=== PATIENT | female | born 1965 | race Caucasian/White ===

== ENCOUNTER → 2018-01-10 07:04 | Outpatient (CLI) | payer MEDICAID, SELFPAY ==
--- NOTE | 2018-01-10 07:04 | DT_ITS ---
This patient was seen during an EMR downtime January 07, 2018 - January 14, 2018. This patient may have a combination of paper and electronic documentation or all paper documentation. All documentation is viewable within the e-chart portion of [employer] for each patient visit.
--- NOTE | 2018-01-10 07:50 | MRI_ITS ---
STUDY: MRI BRAIN WITHOUT CONTRAST REASON FOR EXAM: Female, 52 years old. SEIZURE. TECHNIQUE: Standardized multiplanar fat and water weighted pulse sequences were obtained. COMPARISON: None. FINDINGS: The ventricles are dilated and parallel in configuration, consistent with colpocephaly. There is absence of the corpus callosum with absence of the cingulate gyrus with radial configuration, consistent with dysgenesis of the corpus callosum. There are a limited number of small white matter hyperintensities, distributed throughout the deep white matter tracts of the cerebral hemispheres. Normal bilateral basal ganglia. Normal thalami. There is no extra-axial fluid accumulation. Normal flow voids within the major intracranial circulation suggesting patency by spin echo criteria. Normal sella turcica, pituitary gland, infundibular stalk, optic chiasm and hypothalamus. Normal tectal plate and pineal gland. Normal midbrain, gladis and medulla. Normal cerebellum. Normal basal cisterns. Normal bilateral temporal bones. Normal bilateral internal auditory canals. No demonstrated orbital abnormality, within the constraints of a routine brain study. Normal visualized paranasal sinuses. Normal calvarium and skull base. Normal visualized soft tissue structures. Normal visualized upper cervical spine. MRI/Brain without Contrast IMPRESSION: Dysgenesis of the corpus callosum. Electronically Signed: June Swain MD at 9:35 EDT Tel , Service support ,
== END ==
PROVIDERS: Visit Provider Psychiatry & Neurology Neurology
DX: R56.9 Unspecified convulsions (principal)
CPT/HCPCS: 70551

== ENCOUNTER 2018-04-16 19:44 | Emergency (ER) | payer MEDICAID, SELFPAY ==
[2018-04-16 19:44] VITALS: BP 98/76; PULSE 87; RESP 14; TEMP 36.4; O2SAT 99; BMI 19.8
--- NOTE | 2018-04-16 21:11 | ED.VISSUMM ---
- ER Visit Summary Date of Service: 04/16/18 Chief Complaint: Left leg redness History of Present Illness: The patient is a 52 F who has redness in the left popliteal area. She has a history of eczema and in the same area. Now it is red. She states that seeping some fluid. She had some low-grade temperature elevations over the weekend but nothing today or yesterday. She has been using Tylenol for the pain. Physical Examination: Vital signs reviewed. Left leg reveals some erythema behind the left popliteal area. There is no abscess. No drainage at this time. No lymphangitic streaking. Not specifically tender to palpation Test Results: None performed Emergency Department Course and Treatment: Patient has cellulitis of this area. It is local without streaking. She will be treated with Bactrim and will follow up with her PCP Treatment Plan: [] Disposition: Discharge Impression: Left leg cellulitis This note was generated with [employer] dictation software. It may contain incorrect words, spelling, and punctuation that were not noted in review of the chart prior to signing ED Disposition - Plan for ED Patient: Disposition: Home or Assisted Living Chief Complaint: Cellulitis Instructions: Discharge Instructions for Cellulitis Prescriptions: Smz/Tmp Ds [Bactrim Ds] 1 tab PO BID #20 tab Referrals: Care Physician,No Primary [Primary Care Provider] -
[2018-04-16 21:16] VITALS: PULSE 78; RESP 16; O2SAT 98
[2018-04-16] MEDS: Smz/Tmp Ds Tablet 1 TABLET PO (21:18)
== END 2018-04-16 21:20 | disposition home or self-care (01) ==
LOC: ED 21:15
PROVIDERS: Emergency Provider Emergency Medicine
DX: L03.116 Cellulitis of left lower limb (principal); R56.9 Unspecified convulsions; Z72.0 Tobacco use; Z90.5 Acquired absence of kidney
CPT/HCPCS: 99283

== ENCOUNTER → 2018-12-24 11:21 | Outpatient (CLI) | payer MEDICAID, SELFPAY ==
[2018-12-24 11:59] LABS: Absolute Lymphocyte Count 1.59 X10^3/ul (0.83-4.51); Absolute Neutrophil Count 3.1 X10^3/uL (2.0-7.7); Basophil# 0.02 X10^3/uL; Basophil% 0.4 % (0-1); Eosinophil# 0.08 X10^3/uL; Eosinophils% 1.5 % (0-5); Hematocrit 40.9 % (37-47); Hemoglobin 13.8 g/dl (12.0-15.0); Lymphocyte # 1.59 X10^3/ul (4.0); Lymphocyte % 29.3 % (19-41); Mean Corp Hgb Conc 33.7 g/gl (32-36); Mean Corpuscular Hgb 32.9 pg (27.0-32.0); Mean Corpuscular Volume 97.4 fL (81-99); Mean Platelet Vol. 9.3 fl (6.2-12.0); Monocyte# 0.67 X10^3/uL; Monocyte% 12.3 % (0-10); Neutrophil # 3.06 X10^3/uL (2.7-7.7); Neutrophil % 56.3 % (47-70); POSITIVE COUNT NO; POSITIVE DIFFERENTIAL NO; POSITIVE MORPHOLOGY NO; Platelet Count 309 K/mm3 (150-450); RBC Distribution Width CV 13.2 % (11.6-14.6); RBC Distribution Width SD 46.1 fl (35.1-43.9); White Blood Count 5.4 K/mm3 (4.4-11.0)
[2018-12-24 13:18] LABS: ALB/GLOB Ratio 0.9 RATIO (0.9-2.4); AST(SGOT) 15 U/L (15-37); Alanine Aminotransfer ALT/SGPT 27 U/L (13-56); Albumin, Serum 3.5 g/dL (3.2-5.0); Alkaline Phosphatase 152 U/L (45-117); Anion Gap 6 (5-15); BUN 13 mg/dL (7-18); BUN/Creat Ratio 15.2 RATIO (10-20); Calcium,Total 8.7 mg/dL (8.5-10.1); Chloride 105 mmol/L (98-107); Creatinine, Serum 0.86 mg/dL (0.55-1.02); EST Glomerular Filtration Rate 73 mL/min (>60); Est Glom Filt Rate - Afr Amer 89 mL/min (>60); Globulin 3.8 g/dL (2.2-4.2); Glucose 79 mg/dL (74-106); Potassium 4.1 mmol/L (3.5-5.1); Protein, Total 7.3 g/dL (6.4-8.2); Sodium Level 138 mmol/L (136-145)
== END ==
PROVIDERS: Referring Provider Psychiatry & Neurology Neurology; Visit Provider Psychiatry & Neurology Neurology
DX: T14.8XXA Other injury of unspecified body region, initial encounter (principal); X58.XXXA Exposure to other specified factors, initial encounter; Y93.9 Activity, unspecified; Y92.9 Unspecified place or not applicable; Y99.9 Unspecified external cause status
CPT/HCPCS: 36415; 80053; 85025

== ENCOUNTER → 2020-07-13 06:23 | Outpatient (CLI) | payer MEDICAID, SELFPAY ==
[2020-02-12 09:08] VITALS: BMI 18.3
--- NOTE | 2020-07-13 11:49 | TELEMED_ITS ---
[facility] has confirmed receipt of a request for visit. This document confirms receipt of the order initiating the consult. To find the results of the consultation, please view the patient's reports for the scanned Telemed Consult.
== END ==
PROVIDERS: Referring Provider Psychiatry & Neurology Neurology; Visit Provider Psychiatry & Neurology Neurology
DX: G40.909 Epilepsy, unspecified, not intractable, without status epilepticus (principal)
CPT/HCPCS: 95819

== ENCOUNTER 2021-01-15 06:12 | Inpatient (IN) | payer MEDICAID, SELFPAY ==
[2021-01-15] VITALS (13 sets, daily range): BP systolic 88–112; BP diastolic 52–70; PULSE 74–96; RESP 12–19; TEMP 36.1–36.7; O2SAT 94–100; BMI 20.3
--- NOTE | 2021-01-15 06:18 | EKG12_ITS ---
Test Reason : PALPITATIONS Blood Pressure : / mmHG Vent. Rate : 094 BPM Atrial Rate : 094 BPM P-R Int : 170 ms QRS Dur : 080 ms QT Int : 352 ms P-R-T Axes : 075 065 061 degrees QTc Int : 440 ms Normal sinus rhythm Normal ECG Confirmed by MART GOMEZ, CLARK ([id number]), development editor SHAAN GARCIA ([id number]) on 01/20/2021 9:20:58 AM Referred By: BB Confirmed By:CLARK CEVALLOS MD
--- NOTE | 2021-01-15 06:19 | EDS_ITS ---
HPI History of Present Illness Chief Complaint: Palpitations Informant: patient Onset/Context/Timing Onset: Hours (1-2) Activity at onset: sudden and sleep Timing: Continuous and Lasts (1-2 hrs) Quality: Positive for Sharp Location: Substernal Current Severity: Mild Maximum Severity: Moderate Worsened By: Nothing Relieved By: - (spontanously, when tachydysrrhythmia converted per EMS) Associated Symptoms: Positive for Dyspnea and Palpitations; Negative for Nausea, Vomiting, Diaphoresis, Cough, Fever and Lightheadedness Narrative Narrative: Patient woke up feeling rapid racing heartbeat, nonpleuritic sharp chest discomfort, and dyspnea. Lasted for an hour or 2, called EMS, they put her on the monitor and they saw her in what appeared to be SVT at a rate of over 200, but she spontaneously converted just after that and they were unable to print it. They had an EKG performed just after that that was sent to us and jose c ears normal. The patient states that just after that point when she spontaneously converted, she felt much better and has been feeling better since, except she still has some mild chest discomfort. She has no history of coronary disease. She does have a history of SVT and states in the past she had the exact same symptoms. Prior Similar Symptoms: Yes and - (SVT) [facility] Medical History (Updated 01/15/21 @ 07:[address] Mariano Fernandez MD) Anxiety Blindness of left eye COPD (chronic obstructive pulmonary disease) Depression Epilepsy History of right foot surgery History of uterine cancer Panic attacks Home Medications albuterol sulfate 90 mcg/actuation aerosol inhaler 2 puff INHALATION Q6H PRN 01/27/20 [History Last Taken Unknown] ascorbate calcium (vitamin C) 500 mg tablet 500 mg PO DAILY 01/27/20 [History Last Taken Unknown] aspirin 81 mg tablet,delayed release 81 mg PO DAILY 01/27/20 [History Last Taken Unknown] calcium carbonate 500 mg (1,250 mg)-vitamin D3 200 unit tablet 1 tab PO DAILY 01/27/20 [History Last Taken Unknown] mecobalamin (vitamin B12) 1,000 mcg chewable tablet 500 mcg PO DAILY tab 02/12/20 [History Last Taken Unknown] phenytoin sodium extended 100 mg capsule 100 mg PO .COMPLEX #150 cap 12/22/20 [Rx Last Taken Unknown] Allergy/AdvReac Type Severity Reaction Status Date / Time codeine Allergy Hives Verified 01/15/21 06:19 tramadol Allergy Hives Verified 01/15/21 06:19 Family History Aunt Epilepsy Uncle Epilepsy Other Anxiety Asthma Depression Kidney disease Surgical History History of cholecystectomy History of eye surgery History of hysterectomy History of kidney removal Social History Smoking Status: Current every day smoker tobacco type: cigarettes Tobacco: How many years used: 40 Electronic Cigarette Use: with nicotine second hand exposure: No quit status: considering quitting alcohol intake: current alcohol intake frequency: holidays/special occasions only Alcohol type: wine substance use type: former substance user and marijuana ROS ROS ED Constitutional Constitutional ED: Denies chills or fever(s) Eyes Eyes: Denies change in vision or diplopia ENT ENT ED: Denies rhinorrhea or sore throat Cardiovascular Cardiovascular: Reports as per HPI, chest pain, dyspnea, pounding heartbeat and racing heartbeat; Denies radiating jaw, neck or arm pain, syncope or vomiting Respiratory/Chest Respiratory/Chest: Reports as per HPI and dyspnea; Denies cough Gastrointestinal Gastrointestinal: Denies abdominal pain, diarrhea, nausea or vomiting Genitourinary Genitourinary ED: Denies dysuria or hematuria Musculoskeletal Musculoskeletal: Denies back pain or neck pain Integumentary Denies abscess or rash Neurologic Neurologic: Denies headache(s), paresthesias or weakness Psychiatric Psychiatric: Denies anxiety or suicidal thoughts EXAM Physical Exam Const Vital Signs: 01/15/21 06:13 01/15/21 06:19 01/15/21 06:24 Temperature 97 F L Temperature Source Temporal Pulse Rate 96 95 Respiratory Rate 16 12 Blood Pressure 89/54 L Blood Pressure Mean 65 Pulse Ox 96 97 Oxygen Delivery Method Nasal Cannula Oxygen Flow Rate (L/min) 2 01/15/21 07:00 Temperature Temperature Source Pulse Rate 91 Respiratory Rate 19 H Blood Pressure 97/70 Blood Pressure Mean 79 Pulse Ox 99 Oxygen Delivery Method Room Air Oxygen Flow Rate (L/min) Positive well nourished and well developed General Appearance ED: well developed and NAD HEENT Reports moist mucous membranes normocephalic and atraumatic Eyes PERRL and EOMs intact bilaterally Neck full ROM and supple Resp normal respiratory effort, no retractions, no use of accessory muscles and clear to auscultation bilaterally Effort and Inspection: able to speak in complete sentences; Negative for respiratory distress Auscultation: diminished lung sounds diffuse; Negative for crackles, rales, rhonchi or wheezes Cardio regular rate, regular rhythm and no murmurs Rate: Negative for tachycardic GI non-tender and non-distended Auscultation: normoactive bowel sounds Palpation: soft Back/Spine no CVA tenderness General Back: other FROM Extremity normal to inspection and no calf tenderness General Extremety ED: Negative for edema, pulses abnormal or tenderness General Extremity: Negative for edema or pulses abnormal Neuro oriented x3, CN's II-XII intact bilaterally and no sensory deficits noted Sensorium / Orientation: awake and alert Motor Exam: strength 5/5 throughout Skin no rashes or lesions noted and no wounds Heart Score History: Slightly/Non-Suspicious ECG: Normal Age: >45 - <65 years Risk Factors: 1 or 2 Risk Factors Troponin: </= Normal Limit Score: 2 MDM MDM MDM Narrative Medical decision making narrative: Patient's heart score is 2, and I do not suspect acute coronary syndrome here based on the history and her EKGs. She states she used to live down in [facility], she did see Dr. Reed for cardiology at [facility] in [place], but states she lives here now and is looking for something more local to follow-up with. At that time they just had her take baby aspirin which she has continued. She states she used to drink 12 pots of coffee in conjunction with her significant other, but she does not drink caffeine anymore, but she does smoke quite a bit. We discussed trying to quit, and because it could be helping to push her into tachydysrhythmias. She unders tands. At this time her chest x-ray looks good, her rhythm is normal, her symptoms continue to improve gradually, but she has mild ALONSO and her troponin returned abnormal at 0.2. Plan is for admission and further evaluation and serial troponins. She currently has very mild residual chest discomfort and declines anything for it. Lab Data Attestation: I reviewed the patient's lab results. Labs: Laboratory Results - last 24 hr 01/15/21 01/15/21 06:15 06:15 WBC 7.0 RBC 3.67 L Hgb 12.0 Hct 37.1 MCV 101.1 H MCH 32.7 H MCHC 32.3 RDW Std Deviation 46.9 H RDW Coeff of Eleazar 12.6 Plt Count 259 MPV 9.4 Immature Gran % (Auto) 0.400 Neut % (Auto) 68.3 Lymph % (Auto) 20.5 Bourbon % (Auto) 9.0 Eos % (Auto) 1.4 Baso % (Auto) 0.4 Absolute Neuts (auto) 4.8 Absolute Lymphs (auto) 1.44 Nucleated RBC % 0 Sodium 143 Potassium 3.6 Chloride 109 H Carbon Dioxide 29.0 Anion Gap 5 BUN 21 H Creatinine 1.23 H Estim Creat Clear Calc 41.58 Est GFR (MDRD) Af Amer 58 L Est GFR (MDRD) Non-Af 48 L BUN/Creatinine Ratio 17.1 Glucose 139 H Calcium 8.6 Troponin I 0.217 H Radiography Chest X-Ray - ED: 1 View, Read by ED Physician, No Acute Disease and Chronic Changes Diagnostic Testing: Radiology Impression Chest X-Ray 01/15/21 06:28 IMPRESSION: Mildly hyperinflated lungs. Lungs are clear. Electronically Signed: Hussain Borwn DO at 6:46 EDT Tel , Service support , EKG Initial EKG: Attestation: I personally reviewed and interpreted this EKG as follows: Interpretation: Sinus Rhythm and No Acute Injury Pattern Prior EKG tracings: available for review Prior: Unchanged Discharge Plan Dx/Rx/DC Orders Clinical Impression: Chest pain, unspecified, SVT (supraventricular tachycardia), Encounter for smoking cessation counseling, Elevated troponin Disposition Disposition: Acute Care Hospital [facility] [facility]
[2021-01-15 06:27] LABS: Absolute Lymphocyte Count 1.44 X10^3/uL (0.83-4.51); Absolute Neutrophil Count 4.8 X10^3/uL (2.0-7.7); Basophil# 0.03 X10^3/uL; Basophil% 0.4 % (0-1); Eosinophils% 1.4 % (0-5); Hematocrit 37.1 % (37-47); Lymphocyte # 1.44 X10^3/ul (0.83-4.51); Lymphocyte % 20.5 % (19-41); Mean Corp Hgb Conc 32.3 g/dL (32-36); Mean Corpuscular Hgb 32.7 pg (27.0-32.0); Mean Corpuscular Volume 101.1 fL (81-99); Mean Platelet Vol. 9.4 fl (6.2-12.0); Monocyte# 0.63 X10^3/uL; NRBC Flagged by Analyzer 0 % (0-5); Neutrophil # 4.78 X10^3/uL (2.7-7.7); Neutrophil % 68.3 % (47-70); Platelet Count 259 K/mm3 (150-450); RBC Distribution Width CV 12.6 % (11.6-14.6); RBC Distribution Width SD 46.9 fl (35.1-43.9); Red Blood Count 3.67 M/mm3 (4.2-5.4)
--- NOTE | 2021-01-15 06:28 | RAD_ITS ---
STUDY: X-RAY CHEST REASON FOR EXAM: Female, 55 years old. chest pain TECHNIQUE: Single AP portable view of the chest. COMPARISON: None. FINDINGS: The lungs are mildly hyperinflated. Lungs are clear. There is no demonstrated pleural abnormality. Normal size heart. Normal mediastinum and maddie. Normal visualized pulmonary arteries. Normal visualized aortic arch and descending thoracic aorta. Normal visualized thoracic spine. Normal visualized ribs, clavicles, and shoulders. There is no demonstrated abnormality of the visualized soft tissue structures of the upper abdomen. RAD/Chest 1 View (Portable) IMPRESSION: Mildly hyperinflated lungs. Lungs are clear. Electronically Signed: Hussain Brown DO at 6:46 EDT Tel , Service support ,
[2021-01-15 07:02] LABS: Anion Gap 5 (5-15); BUN 21 mg/dL (7-18); BUN/Creat Ratio 17.1 RATIO (10-20); Calcium,Total 8.6 mg/dL (8.5-10.1); Chloride 109 mmol/L (98-107); Creatinine, Serum 1.23 mg/dL (0.55-1.02); EST Glomerular Filtration Rate 48 mL/min (>60); Est Glom Filt Rate - Afr Amer 58 mL/min (>60); Estimated Creatinine Clearance 41.58 ml/min; Glucose 139 mg/dL (74-106); Potassium 3.6 mmol/L (3.5-5.1); Sodium Level 143 mmol/L (136-145)
[2021-01-15] MEDS: Aspirin 81 MG TAB.CHEW 162 MG PO (08:09)
--- NOTE | 2021-01-15 08:35 | ECHOD_ITS ---
Reason For Study: ARRHYTHMIA Procedure This was a 2D Doppler, Color Flow transthoracic echocardiogram. Exam performed portable in patient room. Left Ventricle Normal left ventricle. The estimated ejection fraction is EF 55-60% %. Right Ventricle Normal right ventricle. Normal systolic function. Atria Normal left atrium. Normal right atrium. Mitral Valve The mitral valve is structurally normal. No prolapse or stenosis seen. Trivial mitral valve insufficiency. Tricuspid Valve Normal tricuspid valve. Trivial tricuspid valve insufficiency. Aortic Valve Normal aortic valve. Pulmonic Valve Normal pulmonic valve. Great Vessels Normal aortic root. Pericardium/Pleural No pericardial effusion. MMode/2D Measurements & Calculations LVIDd: 4.2 cm IVSd: 0.77 cm Ao root diam: 2.8 cm LVIDs: 3.1 cm LVPWd: 0.78 cm RVDd: 2.2 cm FS: 24.4 % LAV(MOD-bp): 22.9 ml LVAd ap4: 19.7 cm2 LVAd ap2: 24.3 cm2 LAV(MOD-bp) Indexed: 15.3 ml/m2 LVLd ap4: 7.0 cm LVLd ap2: 7.4 cm LAV(MOD-sp2): 22.8 ml EDV(MOD-sp4): 47.0 ml EDV(MOD-sp2): 68.0 ml LAV(MOD-sp4): 22.8 ml EDV(sp4-el): 47.0 ml EDV(sp2-el): 67.5 ml LVAs ap4: 11.6 cm2 LVAs ap2: 14.7 cm2 LVLs ap4: 5.6 cm LVLs ap2: 6.6 cm ESV(MOD-sp4): 20.2 ml ESV(MOD-sp2): 29.5 ml ESV(sp4-el): 20.1 ml ESV(sp2-el): 27.9 ml EF(MOD-sp4): 57.1 % EF(MOD-sp2): 56.6 % EF(sp4-el): 57.2 % SV(MOD-sp4): 26.8 ml SV(MOD-sp2): 38.5 ml SV(sp4-el): 26.9 ml LA dimension(2D): 2.6 cm LA A4 area: 10.5 cm2 RA A4 area: 8.6 cm2 Doppler Measurements & Calculations MV E max armani: 60.7 cm/sec Lat Peak E' Armani: 9.7 cm/sec Med Peak E' Armani: 9.6 cm/sec MV A max armani: 46.9 cm/sec E/E' lat: 6.2 E/E' med: 6.3 MV E/A: 1.3 Ao V2 max: 110.8 cm/sec LV V1 max: 82.6 cm/sec PA V2 max: 69.4 cm/sec Ao max P.9 mmHg LV V1 max P.7 mmHg TR max armani: 268.3 cm/sec TR max P.8 mmHg ECHO/Echo Complete Interpretation Summary The estimated ejection fraction is EF 55-60% , Normal LV systolic function No prior Echo to compare Ordering Physician: Arash Roe Referring Physician: ADRYAN PCP Performed By: Niki Looney, KRIS, RVT
[2021-01-15] MEDS: 0.9% Normal Saline 1,000 ML 75 ML IV ×2 (08:58→21:30)
[2021-01-15 09:10] LABS: Magnesium 2.1 mg/dL (1.6-2.6); Thyroid Stim Hormone (TSH) 2.58 uIU/mL (0.358-3.74)
[2021-01-15] MEDS: Aspirin E.C. 81 MG Tablet PO (09:47)
[2021-01-15] MEDS: Phenytoin Na 100 MG Capsule 200 MG PO (09:47)
--- NOTE | 2021-01-15 10:11 | PCM.HP.STD ---
[facility] - General General Date of Admission: 01/15/21 Date of Service: 01/15/21 Chief Complaint: Palpitation, chest pain. [facility] Narrative GRAZYNA SIMON, is a 55 F with past medical history as mentioned below presented to the emergency room because of palpitation and chest pain. Her symptoms started this morning, was sleeping, woke up from sleep because of racing heart, followed by chest pain, retrosternal chest pain, sharp pain, 10 out of 10 in severity, associated with mild shortness of breath and she continued to have palpitation and also she was dizzy and lightheaded. She denied syncope or presyncope. When squad arrived, patient was on SVT with heart rate of over 200 and she spontaneously converted to sinus rhythm without treatment. Upon arrival to ED, patient was in sinus rhythm and her chest pain improved. She does have a history of SVT in the past and last episode was on June,. She is not taking any medication for it. In the emergency department, her blood pressure was borderline, other vital signs were stable, she was sinus rhythm. Routine blood work was remarkable for BUN of twenty-one, creatinine is 1.23, otherwise normal. EKG revealed normal sinus rhythm, normal QRS, normal QTC, no acute segment changes. Troponin was elevated at 0.217 and second troponin was 1.19. Chest x-ray showed no acute findings. She is being admitted for SVT and abnormal cardiac enzymes. [facility] Medical History (Updated 01/15/21 @ 10:[address] Arash Roe MD) Anxiety Blindness of left eye COPD (chronic obstructive pulmonary disease) Depression Epilepsy History of right foot surgery History of uterine cancer Panic attacks Home Medications albuterol sulfate 90 mcg/actuation aerosol inhaler 2 puff INHALATION Q6H PRN 01/27/20 [History Last Taken 01/15/21 07:00] ascorbate calcium (vitamin C) 500 mg tablet 500 mg PO DAILY 01/27/20 [History Last Taken Unknown] aspirin 81 mg tablet,delayed release 81 mg PO DAILY 01/27/20 [History Last Taken Unknown] calcium carbonate 500 mg (1,250 mg)-vitamin D3 200 unit tablet 1 tab PO DAILY 01/27/20 [History Last Taken Unknown] mecobalamin (vitamin B12) 1,000 mcg chewable tablet 500 mcg PO DAILY tab 07/09/20 [History Last Taken 01/14/21 08:00] phenytoin sodium extended 100 mg capsule 100 mg PO .COMPLEX #150 cap 12/22/20 [Rx Last Taken 01/14/21 09:00] Allergy/AdvReac Type Severity Reaction Status Date / Time codeine Allergy Hives Verified 01/15/21 06:19 tramadol Allergy Hives Verified 01/15/21 06:19 Family History Aunt Epilepsy Uncle Epilepsy Other Anxiety Asthma Depression Kidney disease Surgical History (Updated 01/15/21 @ 10:[address] Arash Roe MD) History of cholecystectomy History of eye surgery History of hysterectomy History of kidney removal Social History Smoking Status: Current every day smoker tobacco type: cigarettes Tobacco: How many years used: 40 Electronic Cigarette Use: with nicotine second hand exposure: No quit status: considering quitting alcohol intake: current alcohol intake frequency: holidays/special occasions only Alcohol type: wine substance use type: former substance user and marijuana ROS Constitutional Constitutional: Denies anorexia, chills, fatigue, fever(s) or malaise Eyes Eyes: Denies blurry vision, change in eye color, change in vision, double vision or eye pain ENT HEENT: Denies ear discharge, ear pain, epistaxis, headache(s), nasal congestion, post nasal drip or sore throat Cardiovascular Cardiovascular: Reports chest pain, dyspnea, palpitations and rapid heart rate; Denies edema, lightheadedness, orthopnea, paroxysmal nocturnal dyspnea or syncope Respiratory/Chest Respiratory/Chest: Denies cough, dyspnea, hemoptysis, productive cough, shortness of breath at rest, shortness of breath with exertion or wheezing Gastrointestinal Gastrointestinal: Denies abdominal pain, constipation, diarrhea, hematemesis, hematochezia, melena, nausea or vomiting Genitourinary Genitourinary: Denies burning urination, dysuria, hematuria, urinary hesitancy or urinary urgency Musculoskeletal Musculoskeletal: Denies arthralgias, back pain, joint pain, joint swelling, myalgias or neck pain Neurologic Neurologic: Denies confusion, dizziness, focal weakness, headache(s), numbness, paresthesias, seizures, tingling, tremor(s) or vertigo Psychiatric Psychiatric: Denies anxiety, depression, hallucinations, homicidal ideation or suicidal ideation Endocrine Endocrinology: Denies change in body appearance, cold intolerance, heat intolerance, polydipsia or polyuria Hematologic/Lymphatic Hematologic/Lymphatic: Denies easy bleeding, easy bruising or lymphadenopathy Allergic/Immunologic Allergic/Immunologic: Denies itchy eyes, rhinitis, throat swelling, tongue swelling, hives, urticaria or wheezing Vital Signs Vital Signs Vital Signs: 01/15/21 06:13 01/15/21 06:19 01/15/21 06:24 Temperature 97 F L Temperature Source Temporal Pulse Rate 96 95 Pulse Strength Respiratory Rate 16 12 Respiratory Effort Respiratory Depth Respiratory Pattern Blood Pressure 89/54 L Blood Pressure Mean 65 Blood Pressure Source Blood Pressure Position Blood Pressure Location Pulse Ox 96 97 Oxygen Delivery Method Nasal Cannula Oxygen Flow Rate (L/min) 2 01/15/21 07:00 01/15/21 08:08 01/15/21 09:07 Temperature 98.1 F Temperature Source Oral Pulse Rate 91 80 Pulse Strength Normal (2+) Respiratory Rate 19 H 15 Respiratory Effort Respiratory Depth Respiratory Pattern Blood Pressure 97/70 100/69 Blood Pressure Mean 79 79 Blood Pressure Source Blood Pressure Position Blood Pressure Location Pulse Ox 99 97 Oxygen Delivery Method Room Air Room Air Oxygen Flow Rate (L/min) 01/15/21 09:23 01/15/21 09:35 Temperature 97.6 F L Temperature Source Temporal Pulse Rate 74 Pulse Strength Respiratory Rate 18 Respiratory Effort Normal Non-Labored Respiratory Depth Normal Respiratory Pattern Normal Blood Pressure 88/57 L Blood Pressure Mean 67 Blood Pressure Source Monitor Blood Pressure Position Semi-Fowlers Blood Pressure Location Left Arm Pulse Ox 96 Oxygen Delivery Method Room Air Room Air Oxygen Flow Rate (L/min) Weight Weight: 115 lb Body Mass Index (BMI) 20.3 Physical Exam Const alert, oriented x3, no apparent distress and no limitations General Appearance: cooperative HEENT normocephalic, head/scalp atraumatic, external ears normal, external nose normal and moist oral mucous membranes Eyes PERRL, EOMs intact bilaterally, conjunctivae normal and no scleral icterus Neck no lymphadenopathy, supple, no meningeal signs, no JVD and no carotid bruits Lymph Lymphatic: no lymphadenopathy noted Resp normal respiratory effort, normal air movement and clear to auscultation bilaterally Auscultation: Negative for crackles, rales, rhonchi or wheezes Cardio regular rate, regular rhythm, S1 normal heart sound, S2 normal heart sound, no murmurs and no JVD GI normal to inspection, nondistended, normoactive bowel sounds, soft to palpation, non-tender and non-distended; Negative for hepatosplenomegaly Extremity normal to inspection, full ROM and no clubbing, cyanosis or edema Skin no rashes or lesions noted, no wounds and no petechiae Neuro oriented x3, CN's II-XII intact bilaterally and moves all extremities Sensorium / Orientation: alert Speech: speech normal Motor Exam: strength 5/5 throughout Psych mental status grossly normal and affect normal Appearance: appropriate Results Lab / Micro Data Result Diagrams: 01/15/21 06:15 01/15/21 06:15 Labs: Laboratory Results - last 24 hr 01/15/21 01/15/21 01/15/21 06:15 06:15 06:15 WBC 7.0 RBC 3.67 L Hgb 12.0 Hct 37.1 MCV 101.1 H MCH 32.7 H MCHC 32.3 RDW Std Deviation 46.9 H RDW Coeff of Eleazar 12.6 Plt Count 259 MPV 9.4 Immature Gran % (Auto) 0.400 Neut % (Auto) 68.3 Lymph % (Auto) 20.5 [place] % (Auto) 9.0 Eos % (Auto) 1.4 Baso % (Auto) 0.4 Absolute Neuts (auto) 4.8 Absolute Lymphs (auto) 1.44 Nucleated RBC % 0 Sodium 143 Potassium 3.6 Chloride 109 H Carbon Dioxide 29.0 Anion Gap 5 BUN 21 H Creatinine 1.23 H Estim Creat Clear Calc 41.58 Est GFR (MDRD) Af Amer 58 L Est GFR (MDRD) Non-Af 48 L BUN/Creatinine Ratio 17.1 Glucose 139 H Calcium 8.6 Magnesium 2.1 Troponin I 0.217 H TSH 2.58 01/15/21 08:58 WBC RBC Hgb Hct MCV MCH MCHC RDW Std Deviation RDW Coeff of Eleazar Plt Count MPV Immature Gran % (Auto) Neut % (Auto) Lymph % (Auto) [place] % (Auto) Eos % (Auto) Baso % (Auto) Absolute Neuts (auto) Absolute Lymphs (auto) Nucleated RBC % Sodium Potassium Chloride Carbon Dioxide Anion Gap BUN Creatinine Estim Creat Clear Calc Est GFR (MDRD) Af Amer Est GFR (MDRD) Non-Af BUN/Creatinine Ratio Glucose Calcium Magnesium Troponin I 1.190 H* TSH Radiology Impression Chest X-Ray 01/15/21 06:28 IMPRESSION: Mildly hyperinflated lungs. Lungs are clear. Electronically Signed: Hussain Brown DO at 6:46 EDT Tel , Service support , Assessment & Plan Assessment/Plan (1) Chest pain, unspecified: (2) SVT (supraventricular tachycardia): (3) Elevated troponin: (4) COPD (chronic obstructive pulmonary disease): (5) Epilepsy: (6) H/O left nephrectomy: PLAN: This is a 55 years old female patient presented to the emergency room because of palpitation and chest pain, found to have SVT with heart rate of over 200 by squad, was in sinus rhythm upon arrival to ED, found to have elevated troponin she is being admitted for evaluation and treatment. #1 cardiac arrhythmia: Reportedly, patient had SVT, heart rate was more than 200. Currently, she is in sinus rhythm. She does have a history of recurrent SVT, not on treatment. EKG in the ED revealed normal sinus rhythm, no acute changes. Troponin was elevated. Chest x-ray showed no acute findings. Plan: Admit to PCU, cardiac monitoring, serial cardiac enzymes, 2D echocardiogram, start baby aspirin, lipid profile, cardiology consult, gentle IV fluids for hydration, Tylenol as needed, Zofran as needed, repeat CBC and BMP tomorrow morning. #2 abnormal cardiac enzymes: Troponin is elevated, second troponin is 1.19. EKG was unremarkable as above. This could be due to SVT with very high heart rate, underlying CAD cannot be ruled out. Plan as above, 2D echocardiogram, cardiology consult. #3 renal insufficiency: In the setting of history of left nephrectomy. Admission creatinine is 1.23, BUN is 21. Creatinine was 0.86 on Dec, 2018. Plan: Gentle IV fluids for hydration, repeat BMP tomorrow morning. #4 COPD: Clinically stable, on room air. Plan for albuterol as needed. #5 seizure disorder: Stable, continue phenytoin. #6 DVT prophylaxis: Subcu Lovenox. This note was generated with Dragon dictation software. It may contain incorrect words, spelling, and punctuation that were not noted in checking the note before signing. Charges/Coding Visit Charges Inpatient E&M: 54553 Init Hosp L3
[2021-01-15 10:59] LABS: Cholesterol 135 mg/dL (200); High Density Lipoprotein 70 mg/dL; Triglycerides 50 mg/dL; Very Low Density Lipoprotein 10 mg/dL (5-40)
--- NOTE | 2021-01-15 12:10 | CASEMGMT ---
RN CM Face to Face with patient for initial transition planning/care coordination assessment. RN CM introduced self and role at [facility]. Patient lying in bed, alert and oriented. Patient willing to participate in assessment and is able to answer all questions appropriately. Care providers, pharmacy, and demographics verified. Patient wishes to discharge home, denies need for home health at this time. Patient states she has no further needs or concerns at this time. CM to follow for discharge planning needs that may arise. PCP: No PCP, patient provided with list Specialists: Andry neurologmeet Preferred Pharmacy: [facility] Insurance: [email or web address] Prescription Benefit: yes Living Will/HPOA: none LNOK: daughter, son Living Arrangements: Patient lives alone in a mobile home with ramp to enter the home. Patient states she is independent at home. Transportation: family DME/HHC: Patient states she has shower chair, BSC, raised toilet, and walker at home. Patient denies previous HHC. Disposition Plan: Patient to discharge home with family support and follow-up plans in place. Jojo MANZO, RN, CM
--- NOTE | 2021-01-15 12:14 | CON.PCM.CA_ITS ---
Assessment & Plan Assessment/Plan (1) Elevated troponin: (2) SVT (supraventricular tachycardia): PLAN: 55-year-old patient, presented to ED at [facility] with symptoms of palpitation and chest pain Evidently she woke up with chest pain with racing heart and called the ambulance when the squad team came in she had SVT with a heart rate of around 200 no documented in the record converted spontaneously to sinus She had an episode of SVT in June 2020 and she was not on any medical treatment. Patient has other medical problem is panic attack, history of depression, history of uterine cancer On evaluation her electrocardiogram showed normal sinus, subsequent evaluation with series of high sensitive troponins showed elevation 0.219 Plan recommendation; 1. Clinical diagnosis of non-ST elevation MD patient currently on low-dose aspirin, Lovenox, atorvastatin 2. She had a low blood pressure and symptoms of chest pain resolved. Patient had a history of smoking. 3. Bedside echocardiogram showed LV function preserved with no segmental wall motion or no significant valvular abnormality. 4. No pericardial effusion noted on the echo 5. Based on clinical presentation I did recommended to evaluate further with cardiac catheterization which can be set up on Sunday (3) Chest pain, unspecified: (4) COPD (chronic obstructive pulmonary disease): HPI Consult Data Date of Consult: 01/15/21 HPI Narrative Reason for Consultation: Patient with symptoms of chest pain, episode of SVT and non-ST elevation MD HPI Narrative: GRAZYNA SIMON, is a 55 F who presents [facility] Medical History (Updated 01/15/21 @ 10:[address] Arash Roe MD) Anxiety Blindness of left eye COPD (chronic obstructive pulmonary disease) Depression Epilepsy History of right foot surgery History of uterine cancer Panic attacks Home Medications albuterol sulfate 90 mcg/actuation aerosol inhaler 2 puff INHALATION Q6H PRN 01/27/20 [History Last Taken 01/15/21 07:00] ascorbate calcium (vitamin C) 500 mg tablet 500 mg PO DAILY 01/27/20 [History Last Taken Unknown] aspirin 81 mg tablet,delayed release 81 mg PO DAILY 01/27/20 [History Last Taken Unknown] calcium carbonate 500 mg (1,250 mg)-vitamin D3 200 unit tablet 1 tab PO DAILY 01/27/20 [History Last Taken Unknown] mecobalamin (vitamin B12) 1,000 mcg chewable tablet 500 mcg PO DAILY tab 02/12/20 [History Last Taken 01/14/21 08:00] phenytoin sodium extended 100 mg capsule 100 mg PO .COMPLEX #150 cap 12/22/20 [Rx Last Taken 01/14/21 09:00] Allergy/AdvReac Type Severity Reaction Status Date / Time codeine Allergy Hives Verified 01/15/21 06:19 tramadol Allergy Hives Verified 01/15/21 06:19 Family History Aunt Epilepsy Uncle Epilepsy Other Anxiety Asthma Depression Kidney disease Surgical History (Updated 01/15/21 @ 10:[address] Arash Roe MD) History of cholecystectomy History of eye surgery History of hysterectomy History of kidney removal Social History Smoking Status: Current every day smoker tobacco type: cigarettes Tobacco: How many years used: 40 Electronic Cigarette Use: with nicotine second hand exposure: No quit status: considering quitting alcohol intake: current alcohol intake frequency: holidays/special occasions only Alcohol type: wine substance use type: former substance user and marijuana Physical Exam Narrative This patient seen today at bedside with the nursing staff Also will review echocardiogram at bedside She is comfortable not having any symptoms of chest pain at time of evaluation not in acute distress Alert orientated x3 air sampling and monitoring showed underlying normal sinus rhythm. Noted she had low blood pressure less than 100 mmHg systolic Cardiac examination S1-S2 regular, no murmur no systolic or diastolic murmur, no pericardial rub or gallop Chest examination is clear to auscultation. Examination of the abdomen soft Examination of central nervous system no focal neurological deficit Examination of lower extremities no clubbing no cyanosis no lower extremity edema Objective Data Vital Signs: Vital Signs Temp Pulse Resp BP Pulse Ox 97.8 F 76 18 91/60 94 01/15/21 11:15 01/15/21 11:15 01/15/21 11:15 01/15/21 11:15 01/15/21 11:15 Oxygen Flow Rate (L/min) 2 Oxygen Delivery Method Room Air Weight: 115 lb Body Mass Index (BMI) 20.3 Intake & Output: Intake and Output for Last 24 Hours 01/13/21 01/14/21 01/15/21 23:59 23:59 23:59 Intake Total 120 / 120 Balance 120 / 120 Lab / Micro Data Result Diagrams: 01/15/21 06:15 01/15/21 06:15 Labs: Laboratory Results - last 24 hr 01/15/21 01/15/21 01/15/21 06:15 06:15 06:15 WBC 7.0 RBC 3.67 L Hgb 12.0 Hct 37.1 MCV 101.1 H MCH 32.7 H MCHC 32.3 RDW Std Deviation 46.9 H RDW Coeff of Eleazar 12.6 Plt Count 259 MPV 9.4 Immature Gran % (Auto) 0.400 Neut % (Auto) 68.3 Lymph % (Auto) 20.5 [place] % (Auto) 9.0 Eos % (Auto) 1.4 Baso % (Auto) 0.4 Absolute Neuts (auto) 4.8 Absolute Lymphs (auto) 1.44 Nucleated RBC % 0 Sodium 143 Potassium 3.6 Chloride 109 H Carbon Dioxide 29.0 Anion Gap 5 BUN 21 H Creatinine 1.23 H Estim Creat Clear Calc 41.58 Est GFR (MDRD) Af Amer 58 L Est GFR (MDRD) Non-Af 48 L BUN/Creatinine Ratio 17.1 Glucose 139 H Calcium 8.6 Magnesium 2.1 Troponin I 0.217 H Triglycerides Cholesterol LDL Cholesterol VLDL Cholesterol HDL Cholesterol TSH 2.58 01/15/21 01/15/21 06:15 08:58 WBC RBC Hgb Hct MCV MCH MCHC RDW Std Deviation RDW Coeff of Eleazar Plt Count MPV Immature Gran % (Auto) Neut % (Auto) Lymph % (Auto) [place] % (Auto) Eos % (Auto) Baso % (Auto) Absolute Neuts (auto) Absolute Lymphs (auto) Nucleated RBC % Sodium Potassium Chloride Carbon Dioxide Anion Gap BUN Creatinine Estim Creat Clear Calc Est GFR (MDRD) Af Amer Est GFR (MDRD) Non-Af BUN/Creatinine Ratio Glucose Calcium Magnesium Troponin I 1.190 H* Triglycerides 50 Cholesterol 135 LDL Cholesterol 55 VLDL Cholesterol 10 HDL Cholesterol 70 TSH Cardiology Labs/Tests 01/15/21 06:15: WBC 7.0, RBC 3.67 L, Hgb 12.0, Hct 37.1, MCV 101.1 H, MCH 32.7 H , MCHC 32.3, Plt Count 259, MPV 9.4, Immature Gran % (Auto) 0.400, Neut % (Auto) 68.3, Lymph % (Auto) 20.5, [place] % (Auto) 9.0, Eos % (Auto) 1.4, Baso % (Auto) 0.4, Absolute Neuts (auto) 4.8, Nucleated RBC % 0 01/15/21 06:15: Sodium 143, Potassium 3.6, Chloride 109 H, Carbon Dioxide 29.0, Anion Gap 5, BUN 21 H, Creatinine 1.23 H, Est GFR (MDRD) Af Amer 58 L, Est GFR (MDRD) Non-Af 48 L, BUN/Creatinine Ratio 17.1, Glucose 139 H, Calcium 8.6, Troponin I 0.217 H 01/15/21 06:15: Magnesium 2.1 01/15/21 06:15: Triglycerides 50, Cholesterol 135, LDL Cholesterol 55, VLDL Cholesterol 10, HDL Cholesterol 70 01/15/21 08:58: Troponin I 1.190 H* Rhythm: air sampling and monitoring showed normal sinus rhythm. EKG: Normal sinus rhythm, no ST?the abnormalities noted. ECHO: Bedside echocardiogram LV function is preserved. : Radiography Diagnostic Testing: Radiology Impression Chest X-Ray 01/15/21 06:28 IMPRESSION: Mildly hyperinflated lungs. Lungs are clear. Electronically Signed: Hussain Brown DO at 6:46 EDT Tel , Service support ,
--- NOTE | 2021-01-15 12:19 | EX.NTREPO ---
Medical Nutrition Therapy - History Nutrition Services has been consulted to:: Manage nutrient details of diet order Current diet/nutrition support order:: regular - Anthropometric Measurements Height:: 5 ft 3 in Weight:: 52.163 kg Body Mass Index (BMI):: 20.3 - Relevant Labs Relevant Labs:: RBC 3.67 M/mm3 (4.2-5.4) L 01/15/21 06:15 MCV 101.1 fL (81-99) H 01/15/21 06:15 MCH 32.7 pg (27.0-32.0) H 01/15/21 06:15 RDW Std Deviation 46.9 fl (35.1-43.9) H 01/15/21 06:15 Chloride 109 mmol/L (98-107) H 01/15/21 06:15 BUN 21 mg/dL (7-18) H 01/15/21 06:15 Creatinine 1.23 mg/dL (0.55-1.02) H 01/15/21 06:15 Est GFR (MDRD) Af Amer 58 mL/min (>60) L 01/15/21 06:15 Est GFR (MDRD) Non-Af 48 mL/min (>60) L 01/15/21 06:15 Glucose 139 mg/dL (74-106) H 01/15/21 06:15 Troponin I 1.190 ng/mL (<0.045) H* 01/15/21 08:58 - Assessment Food and Nutrient Intake: Good intake observed at breakfast this date. Pt states PO intake has been poor over past 6 months at home d/t stress. Pt says she has been taking care of her mother and step dad who have recently passed. Pt states her father also within the last year. Pt says she usually weighs 125# and was down to 108# recently- 17#/13.6% wt loss x 6 months is significant for malnutrition. - Nutrition Diagnosis: Clinical Problem Chronic Disease or Condition Related Malnutrition Clinical Problem - Etiology: severe malnutrition in context of social circumstances r/t family stress, anxiety Clinical Problem - Signs/Symptoms: as evidenced by obvious signs of muscle wasting/fat loss in orbital region, protrusion of clavicle, acromion process; unintentional wt loss of 17#/13.6% x 6 months; estimated PO intake meeting <50% of nutritional needs x 6 months Status: Active Problem - Protein Calorie Malnutrition Evidence of Malnutrition Exists: Yes Severe Protein Calorie Malnutrition:: Social/Behavioral/Environmental - Nutrition Intervention Nutrition Prescription: [id number] calories/day (1.3xRMR). 45-55 g protein/day (1g/kg). 1560mL fluid/day (30mL/kg) - Food / Nutrient Delivery Interventions Summary of nutrition intervention:: Nutrition education provided, Nutrition counseling provided Nutrition support ordered as / adjusted to:: continue regular diet; ensure enlive w/ medpass if PO intake at meals fails. Nutrition education provided?: Yes Nutrition Counseling: Pt is motivated to eat better and gain wt. Noted pt has gained ~7# recently. Encouraged pt to continue w/ increased protein/calorie intake w/ smaller more frequent meals throughout the day. Pt appears to have good understanding of nutrient dense foods. Took lunch order for pt- pt ordered a significant amount of food. Emotional support provided, encouraged pt to address anxiety, possible depression. Coordination of Nutrition Care: May benefit from social work assessment. - MNT Monitoring Active Nutrition Patient: Yes Nutrition Status: Requires Follow Up 3-5 Days
[2021-01-15] MEDS: Enoxaparin 60 MG/0.6 ML Syringe 50 MG SC (18:23)
[2021-01-15] MEDS: Phenytoin Na 100 MG Capsule 300 MG PO (21:30)
[2021-01-15] MEDS: Atorvastatin Calcium 40 MG Tablet PO (21:30)
[2021-01-16] VITALS (12 sets, daily range): BP systolic 99–112; BP diastolic 59–71; PULSE 78–105; RESP 18–20; TEMP 36.6–37.4; O2SAT 95–99
[2021-01-16 05:18] LABS: Absolute Lymphocyte Count 2.38 X10^3/uL (0.83-4.51); Absolute Neutrophil Count 2.7 X10^3/uL (2.0-7.7); Basophil# 0.03 X10^3/uL; Basophil% 0.5 % (0-1); Eosinophil# 0.22 X10^3/uL; Eosinophils% 3.7 % (0-5); Hematocrit 36.4 % (37-47); Hemoglobin 11.7 g/dL (12.0-15.0); Lymphocyte # 2.38 X10^3/ul (0.83-4.51); Lymphocyte % 40.2 % (19-41); Mean Corp Hgb Conc 32.1 g/dL (32-36); Mean Corpuscular Hgb 32.4 pg (27.0-32.0); Mean Corpuscular Volume 100.8 fL (81-99); Monocyte# 0.57 X10^3/uL; Monocyte% 9.6 % (0-10); NRBC Flagged by Analyzer 0 % (0-5); Neutrophil # 2.71 X10^3/uL (2.7-7.7); Neutrophil % 45.8 % (47-70); Platelet Count 254 K/mm3 (150-450); RBC Distribution Width SD 48.8 fl (35.1-43.9); Red Blood Count 3.61 M/mm3 (4.2-5.4); White Blood Count 5.9 K/mm3 (4.4-11.0)
[2021-01-16] MEDS: Enoxaparin 60 MG/0.6 ML Syringe 50 MG SC ×2 (05:19→16:47)
[2021-01-16 05:41] LABS: Anion Gap 4 (5-15); BUN 14 mg/dL (7-18); BUN/Creat Ratio 17.6 RATIO (10-20); Calcium,Total 8.1 mg/dL (8.5-10.1); Chloride 110 mmol/L (98-107); EST Glomerular Filtration Rate 79 mL/min (>60); Est Glom Filt Rate - Afr Amer 96 mL/min (>60); Estimated Creatinine Clearance 63.89 ml/min; Glucose 87 mg/dL (74-106); Potassium 4.4 mmol/L (3.5-5.1); Sodium Level 139 mmol/L (136-145)
--- NOTE | 2021-01-16 08:04 | PCM.PN.HOSP ---
Subjective Subjective Chief complaint: Follow-up after admission for SVT and acute non-ST elevation SC. Patient seen and examined. She mentioned that last night, she had an episode of chest tightness and shortness of breath. She was started on oxygen. Today, she denied chest pain or tightness, no palpitation. She is afebrile, blood pressure and heart rate are stable, pulse ox is 95% on 1 L of oxygen. Objective Data Objective Data Vital Signs: Vital Signs Temp Pulse Resp BP Pulse Ox 98.4 F 79 18 111/71 95 01/16/21 03:51 01/16/21 07:00 01/16/21 03:51 01/16/21 03:51 01/16/21 07:00 Oxygen Flow Rate (L/min) 1 Oxygen Delivery Method Nasal Cannula Weight: 114 lb 15.996 oz Body Mass Index (BMI) 20.3 Intake & Output: Intake and Output for Last 24 Hours 01/14/21 01/15/21 01/16/21 23:59 23:59 23:59 Intake Total 1660 / 1660 Balance 1660 / 1660 Lab / Micro Data Result Diagrams: 01/16/21 04:43 01/16/21 04:43 Labs: Laboratory Results - last 24 hr 01/15/21 01/15/21 01/15/21 06:15 06:15 08:58 WBC RBC Hgb Hct MCV MCH MCHC RDW Std Deviation RDW Coeff of Eleazar Plt Count MPV Immature Gran % (Auto) Neut % (Auto) Lymph % (Auto) [place] % (Auto) Eos % (Auto) Baso % (Auto) Absolute Neuts (auto) Absolute Lymphs (auto) Nucleated RBC % Sodium Potassium Chloride Carbon Dioxide Anion Gap BUN Creatinine Estim Creat Clear Calc Est GFR (MDRD) Af Amer Est GFR (MDRD) Non-Af BUN/Creatinine Ratio Glucose Calcium Magnesium 2.1 Troponin I 1.190 H* Triglycerides 50 Cholesterol 135 LDL Cholesterol 55 VLDL Cholesterol 10 HDL Cholesterol 70 TSH 2.58 01/15/21 01/16/21 01/16/21 12:04 04:43 04:43 WBC 5.9 RBC 3.61 L Hgb 11.7 L Hct 36.4 L MCV 100.8 H MCH 32.4 H MCHC 32.1 RDW Std Deviation 48.8 H RDW Coeff of Eleazar 13.0 Plt Count 254 MPV 10.0 Immature Gran % (Auto) 0.200 Neut % (Auto) 45.8 L Lymph % (Auto) 40.2 [place] % (Auto) 9.6 Eos % (Auto) 3.7 Baso % (Auto) 0.5 Absolute Neuts (auto) 2.7 Absolute Lymphs (auto) 2.38 Nucleated RBC % 0 Sodium 139 Potassium 4.4 Chloride 110 H Carbon Dioxide 25.0 Anion Gap 4 L BUN 14 Creatinine 0.80 Estim Creat Clear Calc 63.89 Est GFR (MDRD) Af Amer 96 Est GFR (MDRD) Non-Af 79 BUN/Creatinine Ratio 17.6 Glucose 87 Calcium 8.1 L Magnesium Troponin I 2.110 H* Triglycerides Cholesterol LDL Cholesterol VLDL Cholesterol HDL Cholesterol TSH Radiography Diagnostic Testing: Radiology Impression Echocardiogram 01/15/21 08:35 Interpretation Summary The estimated ejection fraction is EF 55-60% , Normal LV systolic function No prior Echo to compare Ordering Physician: Arash Roe Referring Physician: ADRYAN PCP Performed By: Niki Looney, KRIS, RVT Physical Exam Const alert, oriented x3, no apparent distress and no limitations General Appearance: cooperative HEENT normocephalic, head/scalp atraumatic, external ears normal, external nose normal and moist oral mucous membranes Eyes PERRL, EOMs intact bilaterally, conjunctivae normal and no scleral icterus Neck no lymphadenopathy, supple, no meningeal signs, no JVD and no carotid bruits Lymph Lymphatic: no lymphadenopathy noted Resp normal respiratory effort and normal air movement Resp Narrative: Diminished with sounds bilateral, otherwise clear. Auscultation: Negative for crackles, rales, rhonchi or wheezes Cardio regular rate, regular rhythm, S1 normal heart sound, S2 normal heart sound, no murmurs and no JVD GI normal to inspection, nondistended, normoactive bowel sounds, soft to palpation, non-tender and non-distended; Negative for hepatosplenomegaly Extremity normal to inspection, full ROM and no clubbing, cyanosis or edema Skin no rashes or lesions noted, no wounds and no petechiae Neuro oriented x3, CN's II-XII intact bilaterally and moves all extremities Sensorium / Orientation: alert Speech: speech normal Motor Exam: strength 5/5 throughout Psych mental status grossly normal and affect normal Appearance: appropriate Assessment & Plan Assessment/Plan (1) Chest pain, unspecified: (2) SVT (supraventricular tachycardia): (3) Elevated troponin: (4) COPD (chronic obstructive pulmonary disease): (5) Epilepsy: (6) H/O left nephrectomy: (7) Non-ST elevation myocardial infarction (NSTEMI), initial care episode: PLAN: This is a 55 years old female patient presented to the emergency room because of palpitation and chest pain, found to have SVT with heart rate of over 200 by squad, was in sinus rhythm upon arrival to ED, found to have elevated troponin she is being admitted for evaluation and treatment. #1 cardiac arrhythmia/SVT: Patient remains normal sinus rhythm. Heart rate and blood pressure are stable. Serum electrolytes are within normal limits. TSH was normal. 2D echocardiogram revealed ejection fraction 55 to 60%. Cardiology on the case. Plan for cardiac catheterization tomorrow. #2 Acute non-ST ovation SC: Troponin is elevated, troponin is elevated, last 1 was 2.11. 2D echocardiogram revealed preserved ejection fraction, no wall motion abnormalities. She is on aspirin, therapeutic Lovenox twice daily and statins. Cardiology on the case. Plan for cardiac catheterization tomorrow morning. #3 renal insufficiency: In the setting of history of left nephrectomy. Admission creatinine is 1.23, BUN is 21. Creatinine was 0.86 on Dec, 2018. Today's creatinine is 0.80, BUN is 14, improved. #4 COPD: She is on albuterol as needed. She is on oxygen at 1 L today. Plan to start DuoNeb every 6 hours. #5 seizure disorder: Stable, continue phenytoin. #6 DVT prophylaxis: Subcu Lovenox. This note was generated with [employer]stream[employer]TVation software. It may contain incorrect words, spelling, and punctuation that were not noted in checking the note before signing. Charges/Coding Visit Charges Inpatient E&M: 02997 Subs Hosp L2
[2021-01-16] MEDS: Phenytoin Na 100 MG Capsule 200 MG PO (09:50)
[2021-01-16] MEDS: Aspirin E.C. 81 MG Tablet PO (09:50)
--- NOTE | 2021-01-16 13:12 | PCM.PN.CARD ---
Subjective Subjective Seen today at bedside comfortable no symptoms of chest pain on monitoring tech showed underlying normal sinus rhythm no further episode of palpitation or SVT. Objective Data Vital Signs: Vital Signs Temp Pulse Resp BP Pulse Ox 97.9 F 88 18 99/59 L 99 01/16/21 09:45 01/16/21 11:00 01/16/21 09:45 01/16/21 09:45 01/16/21 09:45 Oxygen Flow Rate (L/min) 1 Oxygen Delivery Method Room Air Weight: 114 lb 15.996 oz Body Mass Index (BMI) 20.3 Intake & Output: Intake and Output for Last 24 Hours 01/14/21 01/15/21 01/16/21 23:59 23:59 23:59 Intake Total 1660 / 1660 1240 / 1240 Balance 1660 / 1660 1240 / 1240 Lab / Micro Data Result Diagrams: 01/16/21 04:43 01/16/21 04:43 Labs: Laboratory Results - last 24 hr 01/15/21 01/16/21 01/16/21 12:04 04:43 04:43 WBC 5.9 RBC 3.61 L Hgb 11.7 L Hct 36.4 L MCV 100.8 H MCH 32.4 H MCHC 32.1 RDW Std Deviation 48.8 H RDW Coeff of Eleazar 13.0 Plt Count 254 MPV 10.0 Immature Gran % (Auto) 0.200 Neut % (Auto) 45.8 L Lymph % (Auto) 40.2 [place] % (Auto) 9.6 Eos % (Auto) 3.7 Baso % (Auto) 0.5 Absolute Neuts (auto) 2.7 Absolute Lymphs (auto) 2.38 Nucleated RBC % 0 Sodium 139 Potassium 4.4 Chloride 110 H Carbon Dioxide 25.0 Anion Gap 4 L BUN 14 Creatinine 0.80 Estim Creat Clear Calc 63.89 Est GFR (MDRD) Af Amer 96 Est GFR (MDRD) Non-Af 79 BUN/Creatinine Ratio 17.6 Glucose 87 Calcium 8.1 L Troponin I 2.110 H* Cardiology Labs/Tests 01/15/21 12:04: Troponin I 2.110 H* 01/16/21 04:43: WBC 5.9, RBC 3.61 L, Hgb 11.7 L, Hct 36.4 L, MCV 100.8 H, MCH 32.4 H, MCHC 32.1, Plt Count 254, MPV 10.0, Immature Gran % (Auto) 0.200, Neut % (Auto) 45.8 L, Lymph % (Auto) 40.2, [place] % (Auto) 9.6, Eos % (Auto) 3.7, Baso % (Auto) 0.5, Absolute Neuts (auto) 2.7, Nucleated RBC % 0 01/16/21 04:43: Sodium 139, Potassium 4.4, Chloride 110 H, Carbon Dioxide 25.0, Anion Gap 4 L, BUN 14, Creatinine 0.80, Est GFR (MDRD) Af Amer 96, Est GFR (MDRD) Non-Af 79, BUN/Creatinine Ratio 17.6, Glucose 87, Calcium 8.1 L Rhythm: Review of cardiac telemetry normal sinus rhythm Radiography Diagnostic Testing: Radiology Impression Echocardiogram 01/15/21 08:35 Interpretation Summary The estimated ejection fraction is EF 55-60% , Normal LV systolic function No prior Echo to compare Ordering Physician: Arash Roe Referring Physician: ADRYAN PCP Performed By: Niki Looney, KRIS, RVT Physical Exam Narrative Today cardiac examination Review of the telemetry normal sinus rhythm Patient alert orientated x3 not in acute distress Cardiovascular examination S1-S2 regular, no murmur no systolic or diastolic murmur, no pericardial rub or gallop Chest examination is clear to auscultation Examination abdomen soft Examination lower extremity no clubbing no cyanosis lower extremity edema. Assessment & Plan Assessment/Plan (1) Chest pain, unspecified: (2) SVT (supraventricular tachycardia): (3) Elevated troponin: PLAN: 55-year-old patient seen evaluated today Stable comfortable She had symptoms of chest pain, COPD Also continues to smoke Cardiac exam essentially normal Subsequent evaluation with cardiac markers elevated Echocardiographic evaluation LV function preserved Plan and recommendations; 1. We will proceed with cardiac catheterization tomorrow 2. Patient had episodes of SVT x2 now in sinus rhythm Will be followed by the rotary slicing machine operator to discuss plan of management following cardiac catheterization. (4) COPD (chronic obstructive pulmonary disease):
[2021-01-16] MEDS: Ipratropium/Albuterol Sulfate 3 ML AMPUL.NEB INHALATION ×2 (15:12→19:36)
[2021-01-16] MEDS: Phenytoin Na 100 MG Capsule 300 MG PO (20:35)
[2021-01-16] MEDS: Atorvastatin Calcium 40 MG Tablet PO (21:19)
[2021-01-17] VITALS (19 sets, daily range): BP systolic 94–115; BP diastolic 46–74; PULSE 70–93; RESP 14–18; TEMP 36.2–36.9; O2SAT 94–99
[2021-01-17] MEDS: Ipratropium/Albuterol Sulfate 3 ML AMPUL.NEB INHALATION ×2 (00:42→07:15)
--- NOTE | 2021-01-17 05:55 | EKG12_ITS ---
Test Reason : AM EKG Blood Pressure : / mmHG Vent. Rate : 080 BPM Atrial Rate : 080 BPM P-R Int : 150 ms QRS Dur : 082 ms QT Int : 370 ms P-R-T Axes : 077 065 066 degrees QTc Int : 426 ms Normal sinus rhythm Normal ECG When compared with ECG of 15-JAN-2021 06:30, MANUAL COMPARISON REQUIRED, DATA IS UNCONFIRMED Confirmed by MART GOMEZ, CLARK ([id number]), editor news SHAAN GARCIA ([id number]) on 01/18/2021 9:05:54 AM Referred By: DANIEL Confirmed By:CLARK CEVALLOS MD
[2021-01-17] MEDS: Aspirin E.C. 81 MG Tablet PO (06:34)
[2021-01-17] MEDS: Phenytoin Na 100 MG Capsule 200 MG PO (06:35)
[2021-01-17] MEDS: 0.9% Saline Lock 10 ML Syringe IV (06:37)
[2021-01-17] MEDS: 0.9% Normal Saline 1,000 ML 60 ML IV (07:57)
--- NOTE | 2021-01-17 11:05 | CASEMGMT ---
According to the [facility] website, the following are in-network tertiary facilities: [facility], [place], [place], [facility], [facility], [facility], [place], [facility], and . Terri ALFORD CM
--- NOTE | 2021-01-17 12:21 | PCM.PN.CARD ---
Subjective Subjective Patient seen and evaluated. Appears to be doing well. No recurrences of the SVT. Objective Data Vital Signs: Vital Signs Temp Pulse Resp BP Pulse Ox 97.1 F L 74 14 106/63 98 01/17/21 10:46 01/17/21 10:46 01/17/21 10:46 01/17/21 10:46 01/17/21 10:46 Oxygen Flow Rate (L/min) 1 Oxygen Delivery Method Room Air Weight: 114 lb 15.996 oz Body Mass Index (BMI) 20.3 Intake & Output: Intake and Output for Last 24 Hours 01/15/21 01/16/21 01/17/21 23:59 23:59 23:59 Intake Total 1660 / 1660 1480 / 1480 Balance 1660 / 1660 1480 / 1480 Lab / Micro Data Result Diagrams: 01/16/21 04:43 01/16/21 04:43 Cardiology Labs/Tests Rhythm: EKG: ECHO: Stress Test: Cardiac Cath: PCI: CT Surgery: Holter monitor: EPS: PPM: CXR: Chest CT Scan: Physical Exam Const oriented x3 and healthy appearing Orientation / Consciousness: awake HEENT normocephalic Eyes PERRL and conjunctivae normal Neck supple, no JVD and no carotid bruits Chest inspection of chest normal Resp normal respiratory effort and clear to auscultation bilaterally Cardio Palpation: normal PMI Rate: regular rate Rhythm: regular rhythm Heart Sounds: S1 normal and S2 normal Peripheral Pulses: pulses 2+ throughout GI normal to inspection, nondistended, normoactive bowel sounds Extremity normal to inspection and no clubbing, cyanosis or edema Psych mental status grossly normal Assessment & Plan Assessment/Plan (1) Chest pain, unspecified: PLAN: She did present with an episode of supraventricular tachycardia with chest discomfort. Her cardiac enzymes were slightly abnormal. Cardiac catheterization today demonstrated a tiny obtuse marginal branch which is subtotally occluded the rest of the vessels appeared to be normal. Would recommend continued medical therapy with aspirin and a low-dose beta-rajat. Office follow-up further SVT (2) SVT (supraventricular tachycardia): PLAN: She does have a history of supraventricular tachyarrhythmia with the second episode of the above. She start Toprol-XL 25 mg a day. If she has any recurrences then she will be considered for an ablation. Thank you for allowing me to participate in the care of your patient. Please don't hesitate to call if any issues arise.
--- NOTE | 2021-01-17 12:29 | PCM.DC ---
Discharge Instructions Diet Discharge Diet: 2000 mg Sodium Diet Activity Discharge Activity: Return to Normal Activity Dressing / Incision Call your doctor if your incision/area has: Continuous Slow Oozing Call your doctor if you observe: Fever of 101 or Higher, Coldness, Increased Pain, Numbness or Tingling, Change in Color, Inability to urinate, Using more than 1 pad per hour, Shortness of breath, Dizziness, Fainting spells, Swelling in the ankles, Chest pain, Prolonged hiccupping, Increased palpitations (irregular heartbeat), Calf discomfort and Uncontrolled pain Follow Up Care Test Results: Test results from this visit will be discussed in further detail at your follow-up appointment, if applicable. Discharge Plan Admission Admit Date/Time: 01/15/21 08:01 Primary Reason for Your Visit: Atypical chest pain Attending Provider: Paul Baires Primary Care Provider: Chris Stevenson,Yolande Primary Consulting Providers: Mendy Mccann Instructions Patient Instructions: ED Chest Pain, Noncardiac Discharge Orders/Prescriptions Prescriptions: New atorvastatin 40 mg Tablet 40 mg PO QHS Qty: 30 RF: 0 nicotine 21 mg/24 hr Patch 24 Hour 21 mg transdermal DAILY Qty: 30 RF: 0 metoprolol succinate 25 mg Tablet Extended Release 24 Hr 25 mg PO DAILY Qty: 30 RF: 0 Continued calcium carbonate-vitamin D3 [Os-Jayson 500 + D3] 500 mg(1,250mg) -200 unit tablet 1 tab PO DAILY RF: 0 ascorbate calcium (vitamin C) 500 mg tablet 500 mg PO DAILY RF: 0 aspirin [Adult Low Dose Aspirin] 81 mg tablet,delayed release (DR/EC) 81 mg PO DAILY RF: 0 albuterol sulfate [Ventolin HFA] 90 mcg/actuation HFA aerosol inhaler 2 puff INHALATION Q6H PRN (Reason: Shortness Of Breath Or Wheezing) RF: 0 mecobalamin (vitamin B12) 1,000 mcg tablet,chewable 500 mcg PO DAILY RF: 0 phenytoin sodium extended 100 mg capsule 100 mg PO .COMPLEX Qty: 150 RF: 3 Referrals / Follow Up: Care Physician,No Primary [Primary Care Provider] - Jesus Lou MD [STAFF PHYSICIAN] - Within 2 Weeks (Supraventricular tachycardia, non-STEMI) Disposition Disposition (needs filled in before D/C Order can be placed): Home, self care
--- NOTE | 2021-01-17 12:29 | PCM.DC.SUM ---
Providers Date of Admission: 01/15/21 Primary Care Physician: Yolande Primary Care Phys Consultations 01/15/21 08:35 Consult: Cardiology Routine Consulting Provider: Mendy Mccann Reason for Consult: SVT, elevated troponin EMERGENT Consult: No MD Notified: Yes Date Notified: 01/15/21 Time Notified: 10:26 Method of Notification: Verbal Reason For Visit: SVT, ABNORMAL CARDIAC ENZYMES Diagnosis Discharge Diagnosis (1) Chest pain, unspecified: Status: Acute Code(s): R07.9 - Chest pain, unspecified (2) SVT (supraventricular tachycardia): Status: Acute Code(s): I47.1 - Supraventricular tachycardia Medications at Discharge Home Medications albuterol sulfate 90 mcg/actuation aerosol inhaler 2 puff INHALATION Q6H PRN 01/27/20 ascorbate calcium (vitamin C) 500 mg tablet 500 mg PO DAILY 01/27/20 aspirin 81 mg tablet,delayed release 81 mg PO DAILY 01/27/20 calcium carbonate 500 mg (1,250 mg)-vitamin D3 200 unit tablet 1 tab PO DAILY 01/27/20 mecobalamin (vitamin B12) 1,000 mcg chewable tablet 500 mcg PO DAILY tab 02/12/20 phenytoin sodium extended 100 mg capsule 100 mg PO .COMPLEX #150 cap 12/22/20 atorvastatin 40 mg PO QHS #30 tab 01/17/21 metoprolol succinate 25 mg PO DAILY #30 tab 01/17/21 nicotine 21 mg TRANSDERMAL DAILY #30 ea 01/17/21 Hospital Course Summary of Care Provided Hospital Course: This is a 55 years old female patient presented to the emergency room because of palpitation and chest pain, found to have SVT with heart rate of more than 200 by squad, was in sinus rhythm upon arrival to ED, found to have elevated troponin she is being admitted for evaluation and treatment of PSVT and non-STEMI. #1 Paroxysmal supraventricular tachycardia : Patient remains normal sinus rhythm. Heart rate and blood pressure are stable. Serum electrolytes are within normal limits. TSH was normal. 2D echocardiogram revealed ejection fraction 55 to 60%. Patient had cardiac catheter today to right radial artery approach which shows subtotal occluded tiny obtuse marginal artery. Rest of the vessels normal. Discussed with the instrument and control technician. Patient is discharged on metoprolol succinate, baby aspirin and atorvastatin. Fasting profile within normal limit. #2 Acute non-ST ovation CA: Troponin is elevated, troponin is elevated, last 1 was 2.11. 2D echocardiogram revealed preserved ejection fraction, no wall motion abnormalities. As mentioned above #3 renal insufficiency: In the setting of history of left nephrectomy. Admission creatinine is 1.23, BUN is 21. Creatinine was 0.86 on Dec, 2018. Today's creatinine is 0.80, BUN is 14, improved. #4 COPD: She is on albuterol as needed. Stable. Continue home inhalers. #5 seizure disorder: Stable, continue phenytoin. #6 DVT prophylaxis: Subcu Lovenox. Discharge medication reconciliation done. Discharge follow-up instructions completed. Discharge process discussed with the patient and all questions were answered to patient's satisfaction. Discharge home after cardiac cath protocol is done. Follow-up Dr. Lou in 2 weeks Total time spent, exact 35 minutes on discharge meds reconciliation, examination, coordination of care with nurses and ancillary staff, review of imaging and blood test and discussion with the patient on follow-up instructions Physical Exam Narrative Patient is chest pain-free. cafeteria monitor shows sinus rhythm. Patient had PSVT at time of admission for which instrument and control technician was consulted. Had cardiac cath in the morning. Heart rate and blood pressure controlled. Physical exam General: Alert, Oriented x3, Cooperative HEENT: Atraumatic, PERRLA, EOMI, Normocephalic Oral: No Gingival or Mucosal Lesions/ Ulcerations Neck: Supple, No JVD, Negative Carotid Bruits Lungs: Air entry equal in bilateral lung bases. No crepitation/rhonchi Cardiovascular: Regular rate, Regular Rhythm, Normal S1, Normal S2, No murmurs Abdomen: Bowel Sounds Present, Soft, Non Tender, Non-Distended : No renal angle tenderness. No suprapubic tenderness. Extremities: No edema, Capillary Refill Less than 3 Seconds Skin: No rashes, No breakdown Musculoskeletal: No Tenderness to Palpation of Joints or Extremities Neurological: Cranial nerves II-XII grossly intact, Deep Tendon Reflexes 2+/4 and Symmetrical, Neuro grossly intact Psych/Mental Status: Normal Affect, Appropriate. Weight / BMI Weight Weight: 114 lb 15.996 oz Body Mass Index (BMI) 20.3 ABG / Lab / Microbiology Data Result Diagrams: 01/16/21 04:43 01/16/21 04:43 Meaningful Use Info Meaningful Use Diagnoses (Choose all that apply): None applicable and AMI AMI/Post PCI/Angioplasty Aspirin given w/in 24hrs of arrival?: Yes ASA at discharge?: Yes Statins at discharge?: Yes Nadir/ARB at discharge?: No Reason Nadir/ARB not ordered:: Hypotension Beta Radha at discharge?: Yes Done w/ Acute CA measure.: Yes Discharge Plan Admission Admit Date/Time: 01/15/21 08:01 Primary Reason for Your Visit: Atypical chest pain Attending Provider: Paul Baires Primary Care Provider: Care Physician,No Primary Consulting Providers: Mendy Mccann Instructions Patient Instructions: ED Chest Pain, Noncardiac Discharge Orders/Prescriptions Prescriptions: New atorvastatin 40 mg Tablet 40 mg PO QHS Qty: 30 RF: 0 nicotine 21 mg/24 hr Patch 24 Hour 21 mg transdermal DAILY Qty: 30 RF: 0 metoprolol succinate 25 mg Tablet Extended Release 24 Hr 25 mg PO DAILY Qty: 30 RF: 0 Continued calcium carbonate-vitamin D3 [Os-Jayson 500 + D3] 500 mg(1,250mg) -200 unit tablet 1 tab PO DAILY RF: 0 ascorbate calcium (vitamin C) 500 mg tablet 500 mg PO DAILY RF: 0 aspirin [Adult Low Dose Aspirin] 81 mg tablet,delayed release (DR/EC) 81 mg PO DAILY RF: 0 albuterol sulfate [Ventolin HFA] 90 mcg/actuation HFA aerosol inhaler 2 puff INHALATION Q6H PRN (Reason: Shortness Of Breath Or Wheezing) RF: 0 mecobalamin (vitamin B12) 1,000 mcg tablet,chewable 500 mcg PO DAILY RF: 0 phenytoin sodium extended 100 mg capsule 100 mg PO .COMPLEX Qty: 150 RF: 3 Referrals / Follow Up: Jesus Lou MD [STAFF PHYSICIAN] - Within 2 Weeks (Supraventricular tachycardia, non-STEMI) Care Physician,No Primary [Primary Care Provider] - Disposition Disposition (needs filled in before D/C Order can be placed): Home, self care Charges/Coding Visit Charges Inpatient E&M: 25006 Disch Hosp
--- NOTE | 2021-01-17 12:30 | CL.D_ITS ---
Patient Name: GRAZYNA SIMON Study Date: 01/17/2021 Performing: Jesus Lou MD Ht: 63 inches 160 cm : 1965 Wt: 114.8 lbs 52 kg Age: 55 Gender: female BSA: 1.53 PROCEDURE(S) PERFORMED [id number] AND INDICATIONS Indications: Suspected CAD Heart Failure: None Stress/Imaging Stress/Image Study Performed: No CONCLUSIONS Subtotal occlusion of a tiny obtuse marginal vessel and minimal disease noted in the other vessels. Preserved ejection fraction. RECOMMENDATIONS Medical therapy If patient has any further supraventricular tachyarrhythmia would recommend for ablation. DESCRIPTION OF PROCEDURE The patient arrived to the procedure lab. The risks and benefits of the procedure as well as a full d escription of our services here and current unavailability of surgical backup were fully explained to the patient and/or their significant other prior to the catheterization. The Timeout was completed, verifying the correct patient and procedure. The patient's procedural site was prepped and draped in the usual fashion. Local anesthetic was given subcutaneously to right radial region with Lidocaine 2% . N.N.. Using a modified Seldinger technique, arterial access was obtained via the right radial arter y, a 6Fr sheath was inserted. N.N. Left Coronary Artery selective angiography was performed in multi ple views using a 5 Fr. 4.0 [place] catheter. Right Coronary Artery selective angiography was then perf ormed in multiple views using a 5 Fr. 4.0 [place] catheter.The arterial sheath was pulled and a TR Band was applied for hemostasis. 11cc air, sheath flushed prior to removal. CORONARY ANGIOGRAPHY DOMINANCE: Co- Dominant LEFT HEART ASSESSMENT Left Ventricular Ejection Fraction: by Echo 60 % Normal LV wall motion Normal Left Ventricular systolic function LEFT MAIN: Angiographically normal LEFT ANTERIOR DESCENDING ARTERY: No significant disease noted CIRCUMFLEX ARTERY: Mild luminal irregularities OM 1: Mid - is occluded RIGHT CORONARY ARTERY: No significant disease noted COMPLICATIONS No Complications PROCEDURE MEDICATIONS Versed 1 mg IV Fentanyl 50 mcg IV Fentanyl 25 mcg IV Oxygen: 2 L/min via nasal cannula Heparin given IA 01/17/2021 12:04:28 Heparin given IA 01/17/2021 12:04:28 SUMMARY OF HEMODYNAMIC DATA Time AIR REST ECG 11:33:50 Art 112/74 (93) 12:06:19 AO 100/62 (80) SA 12:09:41 Signed By Jesus Lou MD On 01/17/2021 12:29:17 PM Jesus Lou MD
--- NOTE | 2021-01-17 16:19 | CHAPLAIN ---
Type of Pastoral Visit _x__ Initial Visit ___ Follow-up Visit ___ On-call Visit ___ General Patient Visit ___ Spiritual Assessment ___ Family Conference ___ Bereavement ___ Rapid Response ___ Code Blue ___ Other (describe below) Pastoral Care Referral From _x__ Patient ___ Family ___ Nurse ___ Physician ___ Applications Systems Engineer ___ Resident Associate ___ Other (describe below) Sacrament/Intervention _x__ Active listening ___ Anointing ___ Caodaism ___ Bereavement ___ Communion ___ Chanelle exploration ___ ___ Life review _x__ Prayer ___ Reconciliation ___ Sacrament of Sick _x__ Supportive presence ___ Wedding ___ Other (describe below) Pastoral Comments patient had heart cath and reports that only meds will be needed and now will be going home; pt has had several deaths in her family in less than one year and speaks of this grief; pt has family at home to help; prayer welcomed
== END 2021-01-17 17:45 | disposition home or self-care (01) | DRG 190 ==
LOC: ED 07:46 → PCU 08:04
PROVIDERS: Admitting Provider Hospitalist; Emergency Provider Emergency Medicine; Visit Provider Internal Medicine
DX: I21.4 Non-ST elevation (NSTEMI) myocardial infarction (principal); I47.1 Supraventricular tachycardia; I95.9 Hypotension, unspecified; I25.10 Atherosclerotic heart disease of native coronary artery without angina pectoris; N28.9 Disorder of kidney and ureter, unspecified; G40.909 Epilepsy, unspecified, not intractable, without status epilepticus; J44.9 Chronic obstructive pulmonary disease, unspecified; E43 Unspecified severe protein-calorie malnutrition; Z68.20 Body mass index [BMI] 20.0-20.9, adult; H54.62 Unqualified visual loss, left eye, normal vision right eye; F32.9 Major depressive disorder, single episode, unspecified; F41.0 Panic disorder [episodic paroxysmal anxiety]; F17.210 Nicotine dependence, cigarettes, uncomplicated; F17.290 Nicotine dependence, other tobacco product, uncomplicated; Z79.82 Long term (current) use of aspirin; Z79.899 Other long term (current) drug therapy; Z85.42 Personal history of malignant neoplasm of other parts of uterus; Z90.5 Acquired absence of kidney
CPT/HCPCS: 36415; 71045; 80048; 80061; 83735; 84443; 84484; 85025; 93005; 93306; 93454; 94640; 97802; 99152; 99153; 99285; 99406; J7030; Q9967; A4216; C1769; C1894

== ENCOUNTER → 2021-04-15 | Outpatient (CLI) | payer MEDICAID, SELFPAY ==
[2021-04-15 15:38] LABS: Mucous, Urine 0 SEEN /hpf (<or=2+); Red Blood Cells-Urine 0 SEEN /hpf (0-5)
[2021-04-15 15:54] LABS: Color, Urine Yellow (Yellow); Glucose, Dipstick Normal (Normal); Ketone-Dipstick Negative (Negative); Leukocyte Esterase-Dipstick Negative /ul (Negative); Nitrite-Dipstick Negative (Negative); Occult Blood-Urine Negative /ul (Negative); Protein-Dipstick 15 mg/dl (Negative); Urine Bilirubin Dipstick Negative (Negative); Urine Clarity Sl. Cloudy (Clear); Urine Urobilinogen Normal (Normal)
[2021-04-15 16:16] LABS: Bacteria RARE /hpf (None Seen); Squamous Epithelial Cells - UA 5-10 SEEN /hpf (5-10); White Blood Cells 0 SEEN /hpf (0-5)
== END | disposition home or self-care (01) ==
LOC: LABSPEC 16:29
PROVIDERS: Visit Provider Physician Assistant
DX: R35.0 Frequency of micturition (principal); R10.9 Unspecified abdominal pain
CPT/HCPCS: 81001; 87086; 87088

== ENCOUNTER 2021-08-30 18:00 | Emergency (ER) | payer MEDICAID, SELFPAY ==
[2021-08-30 18:01] VITALS: BP 113/68; PULSE 88; RESP 16; TEMP 36.9; O2SAT 98; BMI 20.3
--- NOTE | 2021-08-30 18:21 | RAD_ITS ---
STUDY: X-RAY CHEST REASON FOR EXAM: Female, 55 years old. Technologist Notes COUGH, CHEST CONGESTION AND SORE THROAT X2 WEEKS cough TECHNIQUE: XR Chest 1 View COMPARISON: 01.15.21 FINDINGS: There is no demonstrated pleural abnormality. Normal size heart. Normal mediastinum and maddie. Normal visualized pulmonary arteries. Normal visualized aortic arch and descending thoracic aorta. Normal visualized thoracic spine. There is degenerative osteoarthritis of the bilateral shoulders. There is no demonstrated abnormality of the visualized soft tissue structures of the upper abdomen. RAD/Chest 1 View (Portable) IMPRESSION: There are no acute findings. Electronically Signed: Jim Webster MD at 19:01 EST Reading Location ID and State: [facility] / [place] , Service support ,
--- NOTE | 2021-08-30 18:22 | EDS_ITS ---
HPI HPI - URI History of Present Illness Chief Complaint: Cough Informant: patient Onset/Context/Timing Onset: Days (2) Context: Gradual Onset Timing: Continuous Quality: Stabbing Location: Chest Worsened by: - (Nothing) Relieved by: - (Nothing) Associated Symptoms Associated Symptoms: Positive for Nasal Congestion, Headache, Sinus Pressure, Shortness of Breath, Chest Pain and Productive Cough (Yellow sputum); Negative for Myalgias, Nausea, Vomiting, Diarrhea, Nonproductive cough and Hemoptysis Narrative Narrative: Patient presents with cough, congestion, and sinus pressure that has been getting worse over the past 2 days. Patient states she has had pain in her chest. Patient states it feels like somebody is stabbing her. Patient states it is diffusely across her chest. Patient states she is coughing up some yellow sputum. Patient denies any fevers or chills. Patient does admit to some shortness of breath. Patient states nothing makes it better nothing makes it worse. ROS ROS ED Constitutional Constitutional ED: Denies chills or fever(s) Eyes Eyes: Denies blurry vision or change in vision ENT ENT ED: Reports rhinorrhea; Denies sore throat Cardiovascular Cardiovascular: Reports chest pain; Denies palpitations Respiratory/Chest Respiratory/Chest: Reports cough, dyspnea and sputum Gastrointestinal Gastrointestinal: Denies nausea or vomiting Genitourinary Genitourinary ED: Denies dysuria or hematuria Musculoskeletal Musculoskeletal: Reports back pain; Denies neck pain Integumentary Denies abscess or rash Neurologic Neurologic: Denies headache(s) or weakness Allergic/Immunologic Allergic/Immunologic ED: Denies mouth swelling or urticaria [facility] Medical History Anxiety Atherosclerosis of coronary artery without angina pectoris Blindness of left eye COPD (chronic obstructive pulmonary disease) Depression Epilepsy History of non-ST elevation myocardial infarction (NSTEMI) (01/15/21) History of uterine cancer Panic attacks Paroxysmal supraventricular tachycardia Home Medications ascorbate calcium (vitamin C) 500 mg tablet 500 mg PO DAILY 01/27/20 [History Last Taken Unknown] aspirin 81 mg tablet,delayed release 81 mg PO DAILY 01/27/20 [History Last Taken Unknown] calcium carbonate 500 mg-vitamin D3 5 mcg (200 unit) tablet 1 tab PO DAILY 01/27/20 [History Last Taken Unknown] mecobalamin (vitamin B12) 1,000 mcg chewable tablet 500 mcg PO DAILY tab 02/12/20 [History Last Taken 01/14/21 08:00] albuterol sulfate 90 mcg/actuation aerosol inhaler 2 puff INHALATION Q6H PRN #8.5 g 02/08/21 [Rx Last Taken Unknown] blood pressure monitor #1 ea 02/14/21 [Rx Last Taken Unknown] atorvastatin 40 mg tablet 40 mg PO QHS #90 tab 06/13/21 [Rx Last Taken Unknown] metoprolol succinate 25 mg tablet,extended release 24 hr 25 mg PO DAILY #90 tab 06/13/21 [Rx Last Taken Unknown] phenytoin sodium extended 100 mg capsule See Rx Instructions .ROUTE .COMPLEX #150 cap 08/18/21 [Rx Last Taken Unknown] Allergy/AdvReac Type Severity Reaction Status Date / Time latex Allergy Mild rash Verified 08/30/21 18:03 codeine Allergy Hives Verified 08/30/21 18:03 tramadol Allergy Hives Verified 08/30/21 18:03 Family History Aunt Epilepsy Uncle Epilepsy Father Hypertension Myocardial infarction, Onset Age: 47 Grandmother Myocardial infarction, Onset Age: 50 Other Anxiety Asthma Depression Kidney disease Surgical History H/O foot surgery H/O left nephrectomy (2004) History of cholecystectomy History of eye surgery History of hysterectomy History of left heart catheterization (01/17/21) Social History Smoking Status: Current every day smoker tobacco type: cigarettes Tobacco: How many years used: 40 second hand exposure: No quit status: considering quitting alcohol intake: current alcohol intake frequency: holidays/special occasions only Alcohol type: wine substance use type: former substance user and marijuana what type of physical activity do you participate in: walking frequency: daily EXAM Physical Exam Const Vital Signs: 08/30/21 18:01 08/30/21 18:10 08/30/21 20:07 Temperature 98.4 F Temperature Source Temporal Pulse Rate 88 86 Respiratory Rate 16 16 Respiratory Effort Normal Respiratory Depth Normal Respiratory Pattern Normal Blood Pressure 113/68 Blood Pressure Mean 83 Pulse Ox 98 95 Oxygen Delivery Method Room Air Positive well nourished and well developed General Appearance ED: well developed HEENT Reports moist mucous membranes Neck supple and no JVD Resp normal respiratory effort Auscultation: wheezes expiratory wheezes and throughout Cardio Rate: regular rate Rhythm: regular rhythm GI non-tender Palpation: soft Extremity normal to inspection and full ROM Neuro oriented x3, CN's II-XII intact bilaterally and no sensory deficits noted Sensorium / Orientation: alert Motor Exam: strength 5/5 throughout Psych mental status grossly normal MDM MDM MDM Narrative Medical decision making narrative: Patient was given 4 puffs of an albuterol inhaler. Patient is feeling better on reevaluation. Portable 1 view chest x-ray was obtained. On my interpretation, lung moyer are clear. There is normal cardiac silhouette. Bony thorax is normal. There is no acute process noted. Radiologist also interpreted the x-ray and agrees. CBC and comprehensive metabolic profile were obtained and were within normal limits. COVID-19 rapid antigen was obtained and was negative. Patient was advised of her findings. Patient was instructed to continue using her inhaler as needed. Patient was instructed to follow-up with her primary care physician in 5 to 7 days. Patient understood and was agreeable with the plan. All questions were answered. Lab Data Attestation: I reviewed the patient's lab results. Labs: Laboratory Results - last 24 hr 08/30/21 08/30/21 18:36 18:36 WBC 5.0 RBC 4.12 L Hgb 13.3 Hct 39.9 MCV 96.8 MCH 32.3 H MCHC 33.3 RDW Std Deviation 46.3 H RDW Coeff of Eleazar 13.0 Plt Count 285 MPV 9.8 Immature Gran % (Auto) 0.400 Neut % (Auto) 57.1 Lymph % (Auto) 29.9 Fallon % (Auto) 9.0 Eos % (Auto) 3.2 Baso % (Auto) 0.4 Absolute Neuts (auto) 2.9 Absolute Lymphs (auto) 1.50 Nucleated RBC % 0 Sodium 140 Potassium 4.0 Chloride 109 H Carbon Dioxide 26.0 Anion Gap 5 BUN 14 Creatinine 0.80 Estim Creat Clear Calc 63.89 Est GFR (MDRD) Af Amer 94 Est GFR (MDRD) Non-Af 78 BUN/Creatinine Ratio 17.4 Glucose 101 Calcium 8.6 Total Bilirubin 0.20 AST 13 L ALT 21 Alkaline Phosphatase 108 Total Protein 6.6 Albumin 3.1 L Globulin 3.5 Albumin/Globulin Ratio 0.9 Radiography Chest X-Ray - ED: 1 View, Read by ED Physician, Read by Radiologist and Normal Diagnostic Testing: Clinical Impression(s) from Imaging Studies Chest X-Ray 08/30/21 18:21 IMPRESSION: There are no acute findings. Electronically Signed: Jim Webster MD at 19:01 EST , Discharge Plan Triage Chief Complaint: Cough ED Provider: Aron Llanos Dx/Rx/DC Orders Clinical Impression: COPD (chronic obstructive pulmonary disease) Instructions: ED COPD Flare Prescriptions: No Action calcium carbonate-vitamin D3 [Os-Jayson 500 + D3] 500 mg(1,250mg) -200 unit tabl et 1 tab PO DAILY RF: 0 ascorbate calcium (vitamin C) 500 mg tablet 500 mg PO DAILY RF: 0 aspirin [Adult Low Dose Aspirin] 81 mg tablet,delayed release (DR/EC) 81 mg PO DAILY RF: 0 mecobalamin (vitamin B12) 1,000 mcg tablet,chewable 500 mcg PO DAILY RF: 0 albuterol sulfate [Ventolin HFA] 90 mcg/actuation HFA aerosol inhaler 2 puff INHALATION Q6H PRN (Reason: Shortness Of Breath Or Wheezing) Qty: 8.5 RF: 2 (DME) blood pressure monitor Kit See Rx Instructions .ROUTE .MEDSUPPLY Qty: 1 RF: 0 metoprolol succinate 25 mg tablet extended release 24 hr 25 mg PO DAILY Qty: 90 RF: 3 atorvastatin 40 mg tablet 40 mg PO QHS Qty: 90 RF: 3 phenytoin sodium extended 100 mg capsule See Rx Instructions .ROUTE .COMPLEX Qty: 150 RF: 2 Primary Care Provider: Landen Garcia Referrals: Landen Garcia MD [Primary Care Provider] - 5-7 Days Disposition Disposition: Home, Self Care
[2021-08-30 18:55] LABS: Absolute Neutrophil Count 2.9 X10^3/uL (2.0-7.7); Basophil# 0.02 X10^3/uL; Basophil% 0.4 % (0-1); Eosinophil# 0.16 X10^3/uL; Eosinophils% 3.2 % (0-5); Hematocrit 39.9 % (37-47); Hemoglobin 13.3 g/dL (12.0-15.0); Lymphocyte % 29.9 % (19-41); Mean Corp Hgb Conc 33.3 g/dL (32-36); Mean Corpuscular Hgb 32.3 pg (27.0-32.0); Mean Corpuscular Volume 96.8 fL (81-99); Mean Platelet Vol. 9.8 fl (6.2-12.0); Monocyte# 0.45 X10^3/uL; NRBC Flagged by Analyzer 0 % (0-5); Neutrophil # 2.86 X10^3/uL (2.7-7.7); Neutrophil % 57.1 % (47-70); Platelet Count 285 K/mm3 (150-450); RBC Distribution Width SD 46.3 fl (35.1-43.9); Red Blood Count 4.12 M/mm3 (4.2-5.4)
[2021-08-30 19:15] LABS: ALB/GLOB Ratio 0.9 RATIO (0.9-2.4); AST(SGOT) 13 U/L (15-37); Alanine Aminotransfer ALT/SGPT 21 U/L (13-56); Albumin, Serum 3.1 g/dL (3.2-5.0); Alkaline Phosphatase 108 U/L (45-117); Anion Gap 5 (5-15); BUN 14 mg/dL (7-18); BUN/Creat Ratio 17.4 RATIO (10-20); Calcium,Total 8.6 mg/dL (8.5-10.1); Chloride 109 mmol/L (98-107); EST Glomerular Filtration Rate 78 mL/min (>60); Est Glom Filt Rate - Afr Amer 94 mL/min (>60); Estimated Creatinine Clearance 63.89 ml/min; Globulin 3.5 g/dL (2.2-4.2); Glucose 101 mg/dL (74-106); Protein, Total 6.6 g/dL (6.4-8.2); Sodium Level 140 mmol/L (136-145)
[2021-08-30 20:07] VITALS: PULSE 86; RESP 16; O2SAT 95
[2021-08-30 20:44] VITALS: PULSE 81; RESP 18; O2SAT 95
== END 2021-08-30 20:45 | disposition home or self-care (01) ==
PROVIDERS: Emergency Provider Emergency Medicine; PCP Internal Medicine; Visit Provider Emergency Medicine
DX: J44.9 Chronic obstructive pulmonary disease, unspecified (principal); G40.909 Epilepsy, unspecified, not intractable, without status epilepticus; I25.10 Atherosclerotic heart disease of native coronary artery without angina pectoris; I25.2 Old myocardial infarction; F17.210 Nicotine dependence, cigarettes, uncomplicated; Z79.82 Long term (current) use of aspirin; Z79.899 Other long term (current) drug therapy
CPT/HCPCS: 71045; 80053; 85025; 87426; 99284; A4216

== ENCOUNTER 2021-10-18 15:16 | Outpatient (CLI) | payer MEDICAID, SELFPAY ==
--- NOTE | 2021-10-18 15:35 | BI_ITS ---
MAMMOGRAPHY - BILATERAL SCREENING REASON FOR EXAM: Female, 55 years old. Routine annual screening examination. PERTINENT HISTORY: Non-contributory. TECHNIQUE: Digital bilateral breast lin (3D mammographic acquisition) in the CC and MLO projections. 2-D mediolateral oblique (MLO) and craniocaudad (CC) views of both breasts were obtained. CAD: Full Field Digital Mammography with Computer Added Detection was performed. COMPARISON: Comparison is made with prior outside examination dated 03/24/2014. FINDINGS: Breast Composition: The breasts are extremely dense, which lowers the sensitivity of mammography. There are no dominant masses or suspicious calcifications. No other significant abnormalities are identified. There has been no significant change since the prior study. BI/SCRN MAMM (CAD)W/LIN BILAT IMPRESSION: Stable bilateral screening mammogram. Yearly follow-up mammogram recommended. (A) ASSESSMENT CATEGORY: BIRADS Category 1: Negative. A letter regarding these results will be sent to the patient by the facility within 30 days. Approximately 10% of breast cancers are not detected by mammography. A normal mammogram should not delay biopsy of a clinically suspicious abnormality. [id number] Electronically Signed: Simon Delong MD at 13:31 EDT ,
--- NOTE | 2021-10-18 15:40 | BD_ITS ---
STUDY: DUAL ENERGY X-RAY ABSORPTIOMETRY / DXA REASON FOR EXAM: Female, 55 years old. Post Menopausal TECHNIQUE: Bone Mineral Density (BMD) measurements of lumbar spine and bilateral hips were obtained. COMPARISON: None. FINDINGS: Lumbar Spine (L1-L4): g/cm2 (0.672) / T-score (-3.4) / Z-score (-2.1) Findings are suggestive of osteoporosis with a high fracture risk. Left Femur Total: g/cm2 (0.559) / T-score (-3.1) / Z-score (-2.3) Left Femoral Neck: g/cm2 (0.468) / T-score (-3.4) / Z-score (-2.3) Right Femur Total: g/cm2 (0.500) / T-score (-3.6) / Z-score (-2.8) Right Femoral Neck: g/cm2 (0.435) / T-score (-3.7) / Z-score (-2.6) BD/Dexa Bone Density Study IMPRESSION: The patient is considered osteoporotic as outlined below according to World Sanchez Organization (WHO) criteria with a high fracture risk. Reference Information: The T-score is the number of standard deviations above or below the standard which is normal for young adults at their peak bone mineral density. The World Health Organization (WHO) interprets the T-scores as follows: Above -1 Normal bone density Between -1 and -2.5 Osteopenia Equal to / or below -2.5 Osteoporosis As a practical clinical guideline, osteopenia may be graded as follows: Mild -1 through -1.5 Moderate -1.6 through -2.0 Severe -2.1 through -2.4 The Z-score is the number of standard deviations above or below age-matched controls. A Z-score of less than -1.5 would be considered abnormal. References: 1. NIH Osteoporosis and Related Bone Diseases www osteo.org 2. International Society for Clinical Densitometry www iscd.org 3. National Osteoporosis Foundation www nof.org Electronically Signed: Simon Delong MD at 11:09 EDT ,
== END 2021-10-18 23:59 | disposition home or self-care (01) ==
LOC: OPBI 15:16
PROVIDERS: PCP Internal Medicine; Referring Provider Internal Medicine; Visit Provider Internal Medicine
DX: Z12.31 Encounter for screening mammogram for malignant neoplasm of breast (principal); Z78.0 Asymptomatic menopausal state
CPT/HCPCS: 77063; 77067; 77080

== ENCOUNTER → 2022-04-05 | Outpatient (CLI) | payer MEDICAID, SELFPAY ==
[2022-04-05 12:14] LABS: Hematocrit 42.3 % (37-47); Hemoglobin 13.8 g/dL (12.0-15.0); Mean Corp Hgb Conc 32.6 g/dL (32-36); Mean Corpuscular Hgb 32.6 pg (27.0-32.0); Mean Platelet Vol. 10.2 fl (6.2-12.0); Platelet Count 340 K/mm3 (150-450); RBC Distribution Width CV 13.4 % (11.6-14.6); RBC Distribution Width SD 49.8 fl (35.1-43.9); Red Blood Count 4.23 M/mm3 (4.2-5.4); White Blood Count 5.8 K/mm3 (4.4-11.0)
[2022-04-05 12:34] LABS: Cholesterol 169 mg/dL (200); High Density Lipoprotein 71 mg/dL; Triglycerides 98 mg/dL; Very Low Density Lipoprotein 20 mg/dL (5-40)
[2022-04-05 12:55] LABS: Phenytoin (Dilantin) Level < 0.4 mL (10.0-20.0); Valproic Acid (Depakene) Level < 3 ug/mL (50-100)
[2022-04-05 12:56] LABS: AST(SGOT) 14 U/L (15-37); Alanine Aminotransfer ALT/SGPT 19 U/L (13-56); Albumin, Serum 3.5 g/dL (3.2-5.0); Alkaline Phosphatase 111 U/L (45-117); Anion Gap 7 (5-15); BUN 13 mg/dL (7-18); BUN/Creat Ratio 14.3 RATIO (10-20); Calcium,Total 9.3 mg/dL (8.5-10.1); Chloride 104 mmol/L (98-107); Creatinine, Serum 0.91 mg/dL (0.55-1.02); EST Glomerular Filtration Rate 68 mL/min (>60); Est Glom Filt Rate - Afr Amer 82 mL/min (>60); Globulin 3.5 g/dL (2.2-4.2); Glucose 84 mg/dL (74-106); Potassium 4.2 mmol/L (3.5-5.1); Sodium Level 137 mmol/L (136-145)
== END | disposition home or self-care (01) ==
LOC: BIMLAB 09:26
PROVIDERS: Psychiatry & Neurology Neurology; PCP Internal Medicine; Referring Provider Internal Medicine; Visit Provider Internal Medicine
DX: G40.309 Generalized idiopathic epilepsy and epileptic syndromes, not intractable, without status epilepticus (principal); I25.10 Atherosclerotic heart disease of native coronary artery without angina pectoris
CPT/HCPCS: 36415; 80053; 80061; 80164; 80185; 85027

== ENCOUNTER 2022-04-18 08:22 | Day surgery (SDC) | payer MEDICAID, SELFPAY ==
[2022-04-18] MEDS: Lactated Ringers 1,000 ML 15 ML IV (08:30)
[2022-04-18 08:50] VITALS: BP 101/63; PULSE 75; RESP 18; TEMP 36.3; O2SAT 92; BMI 19.9
--- NOTE | 2022-04-18 09:29 | PCM.HP.BLA ---
History and Physical Date of Admission: 04/18/22 Intake Vital Signs ? 04/14/2213:52 Height 5 ft 3 in Weight: 114 lb 6 oz BMI 20.2 BP 103/66 Blood Pressure Location Rt brachial Position Sitting Respiration 18 Pulse 97 Pulse Source NIBP Temp 97.4 F L Temp Source Temporal Pulse Oximetry (%) 97 Oxygen Delivery Method room air Intake Visit Reasons:?C-Scope Chief Complaint: screening colonoscopy Supervisor Slate Splitting Required: No Is patient in pain?: No Allergies latex Allergy (Mild, Verified 04/14/22 13:53) rashcodeine Allergy (Verified 04/14/22 13:53) Hivestramadol Allergy (Verified 04/14/22 13:53) Hives Is last menstrual period known: No Post menopausal: Yes Patient : No PFSH Medical History? Anxiety Atherosclerosis of coronary artery without angina pectoris Blindness of left eye CAD (coronary artery disease) Colon cancer screening COPD (chronic obstructive pulmonary disease) Depression Epilepsy GERD (gastroesophageal reflux disease) Health care maintenance History of non-ST elevation myocardial infarction (NSTEMI) (01/15/21) History of uterine cancer Panic attacks Paroxysmal supraventricular tachycardia Preventative health care Surgical History? H/O foot surgery H/O left nephrectomy (2004) History of cholecystectomy History of eye surgery History of hysterectomy History of left heart catheterization (01/17/21) Family History?(Updated 04/14/22 @ 13:52 by Fifi Penn) Aunt EpilepsyUncle EpilepsyFather Hypertension Myocardial infarction,? Onset Age: 47Grandmother Myocardial infarction,? Onset Age: 50Mother Colon cancerOther Anxiety Asthma Depression Kidney disease Social History? Smoking Status:? Light Smoker (<10/day) Tobacco: How many years used:? 40 second hand exposure:? No quit status:? considering quitting alcohol intake:? current alcohol intake frequency: holidays/special occasions only Alcohol type: wine substance use type:? former substance user and marijuana caffeine:? Yes Type: coffee Number of servings: 2 what type of physical activity do you participate in:? walking frequency:? daily HPI HPI HPI: 56-year-old female here for screening colonoscopy.? Patient reports her last colonoscopy was in 2011 and was normal.? The patient does have history of colon cancer in her mother and adenomatous polyps in her son.? She currently denies any abdominal pain or blood in the stool. Exam Const General: cooperative Orientation: alert and oriented x3 HENMT Head: normal to inspection Neck Neck: normal visual inspection and full ROM Chest Chest palpation & inspection: normal inspection of the chest Resp Effort & Inspection: normal respiratory effort Auscultation: clear to auscultation bilaterally Cardio Rate: regular rate Rhythm: regular rhythm GI Inspection: non-distended Palpation: soft and nontender Skin General: no rashes or lesions noted Neuro General: patient alert and patient oriented x3 Extrem General: full ROM Psych Appearance: grossly normal Mental Status: mental status grossly normal Assessment and Plan Assessment and Plan (1) Colon cancer screening: ?Status:?Acute ?Plan: Patient requires screening colonoscopy.? I explained endoscopy in detail to the patient.? I explained the risks including but not limited to stroke or heart attack with anesthesia, perforation of the GI tract, bleeding, infection.? I explained that any of these could necessitate further emergency surgery.? The patient understands and all questions were answered sufficiently.? The patient wishes to proceed with procedure. Tristan Ferguson MD Pager: [facility] [address] [place] [address], [address] [place] [address] Office: I have re-examined the patient. There are no clinical changes since date of exam.
--- NOTE | 2022-04-18 10:02 | OP.COLON_ITS ---
Patient Name: Jojo Tijerina Procedure Date: 04/18/2022 9:35 AM Date of : 1965 Age: 56 Procedure: Colonoscopy Indications: Colon cancer screening in patient at increased risk: Family history of 1st-degree relative with colon polyps before age 60 years, Screening in patient at increased risk: Family history of 1st-degree relative with colorectal cancer Providers: Tristan Ferguson MD Medicines: Monitored Anesthesia Care Patient Profile: This is a 56 year old female. Refer to note in patient chart for documentation of history and physical. Last Colonoscopy: 10 years ago. Complications: No immediate complications. Procedure: Pre-Anesthesia Assessment: - Prior to the procedure, a History and Physical was performed, and patient medications and allergies were reviewed. The patient's tolerance of previous anesthesia was also reviewed. The risks and benefits of the procedure and the sedation options and risks were discussed with the patient. All questions were answered, and informed consent was obtained. Prior Anticoagulants: The patient has taken no previous anticoagulant or antiplatelet agents. After reviewing the risks and benefits, the patient was deemed in satisfactory condition to undergo the procedure. After I obtained informed consent, the scope was passed under direct vision. Throughout the procedure, the patient's blood pressure, pulse, and oxygen saturations were monitored continuously. The pediatric colonoscope was introduced through the anus and advanced to the cecum, identified by appendiceal orifice and ileocecal valve. The colonoscopy was performed without difficulty. The patient tolerated the procedure well. The quality of the bowel preparation was adequate to identify polyps 6 mm and larger in size. Scope In: 9:45:27 AM Scope Withdrawal Time 0 hours 5 minutes 46 seconds Scope Out: 9:59:40 AM Total Procedure Duration Time 0 hours 14 minutes 13 seconds Findings: The entire examined colon appeared normal on direct and retroflexion views. Impression: - The entire examined colon is normal on direct and retroflexion views. - No specimens collected. Recommendation: - Discharge patient to home. - Resume previous diet. - Continue present medications. - Repeat colonoscopy in 5 years for screening purposes. Procedure Code(s): --- Professional --- 19105, Colonoscopy, flexible; diagnostic, including collection of specimen(s) by brushing or washing, when performed (separate procedure) Diagnosis Code(s): --- Professional --- Z83.71, Family history of colonic polyps Z80.0, Family history of malignant neoplasm of digestive organs CPT copyright 2017 [employer]. All rights reserved. The codes documented in this report are preliminary and upon outdoor advertising leasing agent review may be revised to meet current compliance requirements. Tristan Ferguson MD 04/18/2022 10:01:48 AM This report has been signed electronically. Number of Addenda: 0 Note Initiated On: 04/18/2022 9:35 AM
--- NOTE | 2022-04-18 10:02 | OP.CCLET_ITS ---
04/18/2022 Landen Garcia MD [address] [place] [address] [place] [address] Re : Colonoscopy procedure for Jojo Tijerina Dear Dr. Garcia This procedure was performed on Monday, April 18, 2022. My impressions and recommendations are as follows: Impressions : - The entire examined colon is normal on direct and retroflexion views. - No specimens collected. Recommendations : - Discharge patient to home. - Resume previous diet. - Continue present medications. - Repeat colonoscopy in 5 years for screening purposes. My findings are described in the full procedure note, which is enclosed. If I can be of further assistance, please feel free to contact me at Doctor phone number(s): , Work: . Sincerely, Tristan Ferguson MD 04/18/2022 10:01:48 AM This report has been signed electronically.
[2022-04-18 10:05] VITALS: BP 011/63; BP 109/71; PULSE 77; RESP 16; TEMP 36.1; O2SAT 99
[2022-04-18 10:10] VITALS: BP 101/63; BP 118/74; PULSE 79; RESP 16; O2SAT 100
[2022-04-18 10:15] VITALS: BP 101/63; BP 105/74; PULSE 65; RESP 16; O2SAT 100
[2022-04-18 10:20] VITALS: BP 101/63; BP 99/88; PULSE 77; RESP 16; TEMP 36.6; O2SAT 99
[2022-04-18 10:39] VITALS: BP 101/63
== END 2022-04-18 11:03 | disposition home or self-care (01) ==
LOC: EN 08:23 → AC 08:24
PROVIDERS: PCP Internal Medicine; Referring Provider Internal Medicine; Visit Provider Surgery
PROC: 0DJD8ZZ Inspection of Lower Intestinal Tract, Via Natural or Artificial Opening Endoscopic (ICD-10-PCS; CPT 45378; principal; 2022-04-18 09:25)
DX: Z12.11 Encounter for screening for malignant neoplasm of colon (principal); J44.9 Chronic obstructive pulmonary disease, unspecified; G40.909 Epilepsy, unspecified, not intractable, without status epilepticus; I25.10 Atherosclerotic heart disease of native coronary artery without angina pectoris; I10 Essential (primary) hypertension; E78.00 Pure hypercholesterolemia, unspecified; K21.9 Gastro-esophageal reflux disease without esophagitis; F17.200 Nicotine dependence, unspecified, uncomplicated; F41.0 Panic disorder [episodic paroxysmal anxiety]; Z78.0 Asymptomatic menopausal state; I25.2 Old myocardial infarction; Z90.5 Acquired absence of kidney; Z80.0 Family history of malignant neoplasm of digestive organs; Z83.71 Family history of colonic polyps
CPT/HCPCS: 45378; J7120; J2405

== ENCOUNTER 2022-07-19 12:45 | Emergency (ER) | payer MEDICAID, SELFPAY ==
[2022-07-19 12:48] VITALS: BP 91/53; PULSE 101; RESP 16; TEMP 35.9; BMI 16.6
--- NOTE | 2022-07-19 13:29 | EKG12_ITS ---
Test Reason : Blood Pressure : / mmHG Vent. Rate : 091 BPM Atrial Rate : 091 BPM P-R Int : 172 ms QRS Dur : 076 ms QT Int : 350 ms P-R-T Axes : 081 065 067 degrees QTc Int : 430 ms Normal sinus rhythm Normal ECG Confirmed by YEIMY GOMEZ, CARLO ([id number]), medical transcription editor SHAAN GARCIA ([id number]) on 07/21/2022 10:38:32 AM Referred By: Confirmed By:FERNANDO GAFFNEY MD
--- NOTE | 2022-07-19 13:32 | EDS_ITS ---
HPI History of Present Illness Chief Complaint: Palpitations Narrative Narrative: 56-year-old female, past medical history of coronary artery disease and COPD, presents via EMS with palpitations. She states she awoke this morning at around 730. After she ate at around 11:00, she began having palpitations. She called EMS who stated that she was in supraventricular tachycardia at 250 bpm. They administered 6 mg of adenosine which converted her to sinus tachycardia. She states she has no longer feeling palpitations. She denies any chest pain or shortness of breath with that. She presents for evaluation after cardioversion with adenosine. Of note, she states she always has a low blood pressure in the 90s. She is currently asymptomatic but states last week she had nausea and vomiting which has completely resolved. [facility] Medical History Anxiety Arthritis Asthma Atherosclerosis of coronary artery without angina pectoris Blindness of left eye CAD (coronary artery disease) Cancer Cardiology follow-up encounter Colon cancer screening COPD (chronic obstructive pulmonary disease) Depression Epilepsy Gastric reflux GERD (gastroesophageal reflux disease) Health care maintenance Heartburn High cholesterol History of echocardiogram History of edema History of non-ST elevation myocardial infarction (NSTEMI) (01/15/21) History of pain when walking History of renal disease History of stress test History of uterine cancer Hypertension Injury of back Leg cramps Panic attacks Paroxysmal supraventricular tachycardia Post-menopausal Preventative health care Seizures Smoker Syncope Wears dentures Wears glasses Home Medications ascorbate calcium (vitamin C) 500 mg tablet 500 mg PO DAILY health maintenance 01/27/20 [History Last Taken Unknown] aspirin 81 mg tablet,delayed release (Adult Low Dose Aspirin) 81 mg PO DAILY health maintenance 01/27/20 [History Last Taken Unknown] calcium carbonate 500 mg-vitamin D3 5 mcg (200 unit) tablet (Os-Jayson 500 + D3) 1 tab PO DAILY health maintenance 01/27/20 [History Last Taken Unknown] mecobalamin (vitamin B12) 1,000 mcg chewable tablet 500 mcg PO DAILY health maintenance 02/12/20 [History Last Taken 01/14/21 08:00] albuterol sulfate 90 mcg/actuation aerosol inhaler (Ventolin HFA) 2 puff inhalation Q6H PRN Shortness Of Breath Or Wheezing #8.5 grams 02/08/21 [Rx Last Taken Unknown] blood pressure monitor #1 ea 02/14/21 [Rx Last Taken Unknown] atorvastatin 40 mg tablet 40 mg PO QHS #90 tabs 09/27/21 [Rx Last Taken Unknown] metoprolol succinate 25 mg tablet,extended release 24 hr 25 mg PO DAILY #90 tabs 09/27/21 [Rx Last Taken Unknown] phenytoin sodium extended 100 mg capsule 200 mg PO 2100 04/17/22 [History Last Taken Unknown] phenytoin sodium extended 100 mg capsule 300 mg PO 0900 04/17/22 [History Last Taken Unknown] Allergy/AdvReac Type Severity Reaction Status Date / Time latex Allergy Mild rash Verified 04/18/22 08:50 acetaminophen Allergy Hives Verified 04/18/22 08:50 [From Tylenol-Codeine #3] codeine Allergy Hives Verified 04/18/22 08:50 tramadol Allergy Hives Verified 04/18/22 08:50 Family History Aunt Epilepsy Uncle Epilepsy Father Hypertension Myocardial infarction, Onset Age: 47 Grandmother Myocardial infarction, Onset Age: 50 Mother Colon cancer Other Anxiety Asthma Depression Kidney disease Surgical History H/O foot surgery H/O left nephrectomy (2004) History of cholecystectomy History of eye surgery History of hysterectomy History of left heart catheterization (01/17/21) History of nephrectomy, left Social History Smoking Status: Light Smoker (<10/day) Tobacco: How many years used: 40 second hand exposure: No quit status: considering quitting alcohol intake: current alcohol intake frequency: holidays/special occasions only Alcohol type: wine substance use type: former substance user and marijuana caffeine: Yes Type: coffee Number of servings: 2 what type of physical activity do you participate in: walking frequency: daily ROS ROS ED ROS Narrative Constitutional: No fever, no chills. HEENT: No sore throat. No neck pain. No loss of vision. No rhinorrhea. Cardiovascular: No chest pain. Positive palpitations-resolved. No pedal edema. Respiratory: No cough, no shortness of breath. Abdominal: No abdominal pain. No nausea. No vomiting. Genitourinary: No dysuria. No hematuria. Musculoskeletal: No myalgias. No arthralgias. Neurologic: No headaches. No dizziness. No lightheadedness. Skin: No rash. No change in color. Psychiatric: No depression. No anxiety. EXAM Physical Exam Narrative Exam Narrative: Afebrile. Vital signs noted. Thin, cachectic. HEENT: Normocephalic. Atraumatic. PERRL, EOMI. Neck soft and supple. No point tenderness or step off. Cardiovascular: Regular rate and rhythm with intermittent tachycardia in the 100s. No murmurs, rubs, or gallops appreciated. Respiratory: No tachypnea. Lungs clear to auscultation bilaterally. Gastrointestinal: Abdomen soft, nontender, with normoactive bowel sounds. No rebound or guarding. Neurological: Awake. Alert. Nonfocal, nonlateralizing. Skin: No rash. Normal color. No pallor. Musculoskeletal: No pedal edema. Full range of motion extremities. Const Vital Signs: 07/19/22 12:48 07/19/22 12:55 07/19/22 13:36 Temperature 96.7 F L Temperature Source Temporal Pulse Rate 101 H Respiratory Rate 16 Respiratory Effort Normal Respiratory Pattern Normal Blood Pressure 91/53 L Blood Pressure Mean 65 Oxygen Delivery Method Room Air MDM MDM MDM Narrative Medical decision making narrative: I reviewed her EMR. She has had 2 previous episodes of paroxysmal supraventricular tachycardia. I believe this is what she experienced today that was cardioverted in with adenosine. I will perform basic laboratories to look for dehydration. She was bolused normal saline 1 L intravenously. EKG interpreted by myself demonstrates normal sinus rhythm at 91 bpm without ectopy or acute ST changes. No STEMI. CBC is grossly normal with a normal white count of 5.7, hemoglobin normal 12.7, platelet count normal at 296. Electrolyte panel shows chloride slightly elevated at 110, normal sodium and potassium. BUN and creatinine are also normal. Glucose of 117 with low anion gap of 3. Chest x- ray interpreted by myself shows no acute process, no pneumothorax or infiltrate. At this point in time, I feel she be discharged safely home to follow-up with her tower foreman, Dr. Lou. Disposition is discharged home in stable condition. Lab Data Attestation: I reviewed the patient's lab results. Labs: Laboratory Results - last 24 hr 07/19/22 07/19/22 13:35 13:35 WBC 5.7 RBC 3.99 L Hgb 12.7 Hct 39.7 MCV 99.5 H MCH 31.8 MCHC 32.0 RDW Std Deviation 47.6 H RDW Coeff of Eleazar 13.0 Plt Count 296 MPV 9.4 Immature Gran % (Auto) 0.300 Neut % (Auto) 66.1 Lymph % (Auto) 21.5 Crittenden % (Auto) 9.9 Eos % (Auto) 1.9 Baso % (Auto) 0.3 Absolute Neuts (auto) 3.8 Absolute Lymphs (auto) 1.23 Nucleated RBC % 0 Sodium 141 Potassium 4.1 Chloride 110 H Carbon Dioxide 28.0 Anion Gap 3 L BUN 15 Creatinine 1.02 Estim Creat Clear Calc 40.34 Est GFR (MDRD) Af Amer 71 Est GFR (MDRD) Non-Af 59 L BUN/Creatinine Ratio 14.7 Glucose 117 H Calcium 8.4 L Radiography Diagnostic Testing: Clinical Impression(s) from Imaging Studies Chest X-Ray 07/19/22 13:50 IMPRESSION: Hyperinflation. The lungs are clear. Electronically Signed: Simon Delong MD at 13:59 EST , Discharge Plan Triage Chief Complaint: Palpitations ED Provider: Missael Pace Dx/Rx/DC Orders Clinical Impression: Paroxysmal supraventricular tachycardia, Palpitations Instructions: ED Understanding Supraventricular Tachycardia (SVT) Prescriptions: No Action calcium carbonate-vitamin D3 [Os-Jayson 500 + D3] 500 mg(1,250mg) -200 unit tablet 1 tab PO DAILY ascorbate calcium (vitamin C) 500 mg tablet 500 mg PO DAILY Rx Instructions: Take during winter season only. aspirin [Adult Low Dose Aspirin] 81 mg tablet,delayed release (DR/EC) 81 mg PO DAILY mecobalamin (vitamin B12) 1,000 mcg tablet,chewable 500 mcg PO DAILY albuterol sulfate [Ventolin HFA] 90 mcg/actuation HFA aerosol inhaler 2 puff INHALATION Q6H PRN (Reason: Shortness Of Breath Or Wheezing) Qty: 8.5 2RF atorvastatin 40 mg tablet 40 mg PO QHS Qty: 90 3RF metoprolol succinate 25 mg tablet extended release 24 hr 25 mg PO DAILY Qty: 90 3RF Rx Instructions: Hold for heart less than 60 or systolic blood pressure less than 100 mmHg. phenytoin sodium extended 100 mg capsule 300 mg PO 0900 Label Comments: TAKE 2 CAPSULES BY MOUTH EVERY MORNING AND 3 CAPSULES EVERY EVENING phenytoin sodium extended 100 mg capsule 200 mg PO 2100 Label Comments: TAKE 2 CAPSULES BY MOUTH EVERY MORNING AND 3 CAPSULES EVERY EVENING (DME) blood pressure monitor Kit See Rx Instructions .ROUTE .MEDSUPPLY Qty: 1 0RF Rx Instructions: Check blood pressure daily Primary Care Provider: Landen Garcia Referrals: Jesus Lou MD [Med Staff - Active Staff] - As soon as possible Landen Garcia MD [Primary Care Provider] - Disposition Disposition: Home, Self Care
--- NOTE | 2022-07-19 13:50 | RAD_ITS ---
STUDY: X-RAY CHEST REASON FOR EXAM: Female, 56 years old. Chest pain TECHNIQUE: Single AP portable view of the chest. COMPARISON: Comparison is made with prior study dated 08/30/2021. FINDINGS: EKG electrodes are seen. Hyperinflation. The lungs are clear. There is no demonstrated pleural abnormality. Normal size heart. Normal mediastinum and maddie. Normal visualized pulmonary arteries. Normal visualized aortic arch and descending thoracic aorta. Normal visualized thoracic spine. Normal visualized ribs, clavicles, and shoulders. There is no demonstrated abnormality of the visualized soft tissue structures of the upper abdomen. RAD/Chest 1 View (Portable) IMPRESSION: Hyperinflation. The lungs are clear. Electronically Signed: Simon Delong MD at 13:59 EST ,
[2022-07-19 13:52] LABS: Absolute Lymphocyte Count 1.23 X10^3/uL (0.83-4.51); Absolute Neutrophil Count 3.8 X10^3/uL (2.0-7.7); Basophil# 0.02 X10^3/uL; Basophil% 0.3 % (0-1); Eosinophil# 0.11 X10^3/uL; Eosinophils% 1.9 % (0-5); Hematocrit 39.7 % (37-47); Hemoglobin 12.7 g/dL (12.0-15.0); Lymphocyte # 1.23 X10^3/ul (0.83-4.51); Lymphocyte % 21.5 % (19-41); Mean Corpuscular Hgb 31.8 pg (27.0-32.0); Mean Corpuscular Volume 99.5 fL (81-99); Mean Platelet Vol. 9.4 fl (6.2-12.0); Monocyte# 0.57 X10^3/uL; Monocyte% 9.9 % (0-10); NRBC Flagged by Analyzer 0 % (0-5); Neutrophil # 3.78 X10^3/uL (2.7-7.7); Neutrophil % 66.1 % (47-70); Platelet Count 296 K/mm3 (150-450); RBC Distribution Width SD 47.6 fl (35.1-43.9); Red Blood Count 3.99 M/mm3 (4.2-5.4); White Blood Count 5.7 K/mm3 (4.4-11.0)
[2022-07-19 14:00] LABS: Anion Gap 3 (5-15); BUN 15 mg/dL (7-18); BUN/Creat Ratio 14.7 RATIO (10-20); Calcium,Total 8.4 mg/dL (8.5-10.1); Chloride 110 mmol/L (98-107); Creatinine, Serum 1.02 mg/dL (0.55-1.02); EST Glomerular Filtration Rate 59 mL/min (>60); Est Glom Filt Rate - Afr Amer 71 mL/min (>60); Estimated Creatinine Clearance 40.34 ml/min; Glucose 117 mg/dL (74-106); Potassium 4.1 mmol/L (3.5-5.1); Sodium Level 141 mmol/L (136-145)
== END 2022-07-19 14:42 | disposition home or self-care (01) ==
PROVIDERS: Emergency Provider Emergency Medicine; PCP Internal Medicine; Visit Provider Emergency Medicine
DX: I47.1 Supraventricular tachycardia (principal); J44.9 Chronic obstructive pulmonary disease, unspecified; E78.00 Pure hypercholesterolemia, unspecified; R00.2 Palpitations; F17.200 Nicotine dependence, unspecified, uncomplicated; I25.10 Atherosclerotic heart disease of native coronary artery without angina pectoris; I10 Essential (primary) hypertension
CPT/HCPCS: 71045; 80048; 85025; 93005; 99285

== ENCOUNTER → 2022-09-14 | Outpatient (CLI) | payer MEDICAID, SELFPAY ==
--- NOTE | 2022-09-14 11:03 | ECHOD_ITS ---
Reason For Study: SVT Procedure This was a 2D Doppler, Color Flow transthoracic echocardiogram. Exam performed in department. Left Ventricle Normal LV size. Left ventricular systolic function is normal. The estimated ejection fraction is 60 %. No regional wall motion abnormalities noted. Right Ventricle Normal RV size. Normal systolic function. Atria Normal left atrium. Normal right atrium. Probable chiari network. Mitral Valve Normal mitral valve. Tricuspid Valve Normal tricuspid valve. Trivial tricuspid valve insufficiency. Aortic Valve Normal aortic valve. Trisinus/trileaflet aortic valve. Pulmonic Valve Normal pulmonic valve. Great Vessels Normal aortic root. The pulmonary artery is normal size. Normal inferior vena cava. Pericardium/Pleural No pericardial effusion. MMode/2D Measurements & Calculations LVIDd: 3.8 cm IVSd: 0.81 cm LAV(MOD-sp4): 20.2 ml LVIDs: 3.1 cm LVPWd: 0.84 cm FS: 17.3 % LVAd ap4: 19.7 cm2 SV(MOD-sp4): 31.3 ml SV(sp4-el): 33.4 ml LVLd ap4: 6.6 cm EDV(MOD-sp4): 48.0 ml EDV(sp4-el): 49.8 ml LVAs ap4: 10.1 cm2 LVLs ap4: 5.2 cm ESV(MOD-sp4): 16.7 ml ESV(sp4-el): 16.4 ml EF(MOD-sp4): 65.2 % EF(sp4-el): 67.0 % LA A4 area: 9.5 cm2 RA A4 area: 8.2 cm2 Time Measurements MV dec time: 0.18 sec Doppler Measurements & Calculations MV E max armani: 78.6 cm/sec Lat Peak E' Armani: 13.5 cm/sec Med Peak E' Armani: 10.7 cm/sec MV A max armani: 65.8 cm/sec E/E' lat: 5.8 E/E' med: 7.4 MV E/A: 1.2 MV V2 max: 100.5 cm/sec Ao V2 max: 115.6 cm/sec MV max P.0 mmHg MV dec slope: 445.5 cm/sec2 Ao max P.3 mmHg MV V2 mean: 67.3 cm/sec Ao V2 mean: 77.5 cm/sec MV mean P.0 mmHg Ao mean P.7 mmHg MV V2 VTI: 24.3 cm Ao V2 VTI: 26.4 cm AV (velocity ratio): 0.75 LV V1 max: 88.4 cm/sec TR max armani: 224.4 cm/sec LV V1 max P.1 mmHg TR max P.1 mmHg LV V1 mean P.6 mmHg LV V1 mean: 60.0 cm/sec LV V1 VTI: 19.8 cm ECHO/Echo Complete Interpretation Summary Normal LV size. Left ventricular systolic function is normal. The estimated ejection fraction is 60 %. Structurally normal valves. Ordering Physician: Jovani Wright Referring Physician: Landen Garcia Performed By: Pat Garcia RCS
== END | disposition home or self-care (01) ==
PROVIDERS: PCP Internal Medicine; Visit Provider Nurse Practitioner Family
DX: I47.1 Supraventricular tachycardia (principal)
CPT/HCPCS: 93306

== ENCOUNTER 2022-11-09 08:50 | Day surgery (SDC) | payer MEDICAID, SELFPAY ==
[2022-10-31 12:29] LABS: Absolute Lymphocyte Count 1.79 X10^3/uL (0.83-4.51); Absolute Neutrophil Count 3.7 X10^3/uL (2.0-7.7); Basophil# 0.04 X10^3/uL; Basophil% 0.6 % (0-1); Eosinophil# 0.36 X10^3/uL; Eosinophils% 5.4 % (0-5); Hematocrit 40.6 % (37-47); Hemoglobin 13.6 g/dL (12.0-15.0); Lymphocyte # 1.79 X10^3/ul (0.83-4.51); Lymphocyte % 26.8 % (19-41); Mean Corp Hgb Conc 33.5 g/dL (32-36); Mean Corpuscular Hgb 32.7 pg (27.0-32.0); Mean Corpuscular Volume 97.6 fL (81-99); Mean Platelet Vol. 9.3 fl (6.2-12.0); Monocyte# 0.74 X10^3/uL; Monocyte% 11.1 % (0-10); NRBC Flagged by Analyzer 0 % (0-5); Neutrophil # 3.74 X10^3/uL (2.7-7.7); Platelet Count 312 K/mm3 (150-450); RBC Distribution Width CV 13.5 % (11.6-14.6); RBC Distribution Width SD 48.5 fl (35.1-43.9); Red Blood Count 4.16 M/mm3 (4.2-5.4); White Blood Count 6.7 K/mm3 (4.4-11.0)
[2022-10-31 12:42] LABS: Prothrombin Time (Protime)PT. 12.4 SECONDS (11.7-14.9)
[2022-10-31 12:43] LABS: Partial Thromboplast Time 25.2 Seconds (24.1-36.2)
[2022-10-31 13:08] LABS: Anion Gap 4 (5-15); BUN 15 mg/dL (7-18); BUN/Creat Ratio 15.9 RATIO (10-20); Calcium,Total 8.8 mg/dL (8.5-10.1); Chloride 106 mmol/L (98-107); Creatinine, Serum 0.95 mg/dL (0.55-1.02); EST Glomerular Filtration Rate 64 mL/min (>60); Est Glom Filt Rate - Afr Amer 78 mL/min (>60); Glucose 72 mg/dL (74-106); Potassium 4.3 mmol/L (3.5-5.1); Sodium Level 136 mmol/L (136-145)
[2022-11-08 08:14] VITALS: BMI 20.2
--- NOTE | 2022-11-09 11:53 | ELECTROSTU_ITS ---
Electrophysiology Report Electrophysiology Report The patient has recurrent narrow complex tachycardia despite beta-rajat therapy and here for EP testing and ablation. The patient was brought to the [place] catheterization laboratory being NPO. After informed consent the right groin was prepped and draped in usual sterile manner. Intermittent boluses of Versed and fentanyl were used for sedation and analgesia as well as 1% subcutaneous lidocaine. Using the Seldinger technique the right femoral vein was cannulated and a 12 [facility] Tri-Port was inserted. Through this Tri-Port a 4 Hebrew catheter was positioned under fluoroscopic guidance in the high right atrium and a 4 Hebrew catheter was positioned in the right ventricular apex and a multiple catheter was positioned at the hiss position. Programmed stimulation was completed of the atrium and the ventricle in the baseline state as well as during Isuprel infusion. Findings in the baseline state are sinus cycle length 740 AH 120 HV 35 maximum sinus node recovery time is 1160 corrected sinus node recovery time is 420 AV block cycle length is 290 VA block cycle length is 380. There is decremental and concentric retrograde conduction. There is no evidence of antegrade or retrograde accessory pathway the AV node ERP is 250 at 600 the VA ERP is 270 at 550 there is no inducible tachycardia During Isuprel infusion of 3 mcg the sinus cycle length was 500, the AH was 65, HV was 35. The AV block cycle length is 220 the VA block cycle length is 250 there is decremental and concentric retrograde conduction. The AV node ERP is less than 220 at 450 There is reproducible induction of a supraventricular tachycardia with atrial triple stimuli 480/230/220 as well as burst atrial pacing at 240 and 230. The induction was dependent upon a long AH there was a short VA time with a measurement of the VA interval of 50 ms at the hiss. The tachycardia could not be entrained but it was reproducibly inducible based on these features a diagnosis is typical AV hakan reentrant tachycardia A 4 mm nonirrigated ablation catheter was positioned under fluoroscopic guidance and there was careful manipulation in the triangle of Eduardo as well as the coronary sinus os multiple radiofrequency lesions were applied on the anterior and superior aspect of the coronary sinus os with junctional beats. There is no antegrade or retrograde AV or VA block during radiofrequency ablation. At the conclusion of the ablation electrophysiology testing was repeated in the baseline state the sinus cycle length was 640 the AH was 85 the HV was 40 and the AV block cycle length was 460 During Isuprel infusion the sinus cycle length was 510 the AH was 48 the HV was 40 the AV block was 310 the AV node ERP was less than [address] of 450 with triple atrial extrastimuli and burst atrial pacing there was no inducible AV hakan reentrant tachycardia or any other SVT. There was a single AV hakan echo beat at the end of refractoriness. Conclusions successful slow pathway ablation for management of inducible typical AV hakan reentrant tachycardia. There were no complications.
== END 2022-11-09 15:30 | disposition home or self-care (01) ==
LOC: CLSP 08:51
PROVIDERS: Nurse Practitioner Family; PCP Internal Medicine; Referring Provider Internal Medicine Cardiovascular Disease; Visit Provider Internal Medicine Cardiovascular Disease
DX: I47.1 Supraventricular tachycardia (principal); G40.909 Epilepsy, unspecified, not intractable, without status epilepticus; I25.10 Atherosclerotic heart disease of native coronary artery without angina pectoris; I25.2 Old myocardial infarction; Z79.82 Long term (current) use of aspirin; Z79.899 Other long term (current) drug therapy; Z90.5 Acquired absence of kidney
CPT/HCPCS: 36415; 80048; 85025; 85610; 85730; 93609; 93623; 93653; 99152; 99153; C1730; C1733; C1894; J7040

== ENCOUNTER 2025-01-20 10:28 | Emergency (ER) | payer MEDICAID, SELFPAY ==
[2025-01-20 10:29] VITALS: BP 101/71; PULSE 87; RESP 16; TEMP 36.4; O2SAT 96
--- NOTE | 2025-01-20 10:46 | CT_ITS ---
EXAM: NONCONTRAST CT SCAN OF THE HEAD CLINICAL HISTORY: Seizures, right head injury COMPARISON: None TECHNIQUE: Serial axial series through the head were obtained without contrast. 2-D coronal and sagittal reformats were then obtained. FINDINGS: Brain: The anterior horns of the lateral ventricles are small and appear parallel with dilation of the occipital horns, measuring 2.9 cm on the right, 2.9 cm in the left. 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 There is no acute large territorial infarct, intracranial hemorrhage, midline shift or mass effect. There are atherosclerotic vascular calcifications involving the bilateral carotid siphons. The sella and pineal gland regions appear unremarkable. There is no evidence of cerebellar tonsillar herniation. Basilar cisterns are patent. Paranasal sinuses: There is a 0.8 cm mucous retention cyst in the left maxillary sinus. Mastoid air cells: Well-aerated. Calvarium: The bony calvarium is intact. Orbits: The bilateral globes are symmetric, without retrobulbar compressive mass lesion or hemorrhage. Miscellaneous: CT/Brain/Head without Contrast IMPRESSION: There is a 0.8 cm mucous retention cyst in the left maxillary sinus. The anterior horns of the lateral ventricles are small and appear parallel with dilation of the occipital horns, measuring 2.9 cm on the right, 2.9 cm in the left. 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 No acute intracranial abnormality is identified. There is no visible acute tra umatic injury. Reading Location: [facility]
--- NOTE | 2025-01-20 10:47 | EKG12_ITS ---
Test Reason : GENERAL Blood Pressure : */* mmHG Vent. Rate : 78 BPM Atrial Rate : 78 BPM P-R Int : 156 ms QRS Dur : 80 ms QT Int : 388 ms P-R-T Axes : 77 61 69 degrees QTcB Int : 442 ms Normal sinus rhythm Normal ECG Confirmed by MART GOMEZ, CLARK ([id number]), proposal editor AGUSTINA CAMACHO ([id number]) on 01/21/2025 8:23:37 AM Referred By: Confirmed By: CLARK CEVALLOS MD
--- NOTE | 2025-01-20 10:47 | EX.ED.DYSGE1 ---
HPI History of Present Illness Chief Complaint: Syncope Informant: patient and spouse/S.O. Narrative Narrative: 59-year-old female with a history of SVT coronary artery disease and seizure disorder presenting to the emergency room with recurrent seizures. Patient states that she had a seizure according to her several weeks ago and hit her head had a hematoma. She notes more frequent seizure episodes recently several times per month and especially since her fall with head injury. She is not currently on seizure medications. She states she was on Dilantin and then another medicine she cannot recall (chart notes Trileptal) but stopped that to explore cannabis. Cannabis was not helping so she stopped that and currently has no therapy. She has not seen a neurologist for about 2 years. She was seeing Dr. Kaur locally. Patient states that she frequently loses her balance and goes unconscious. states that each time she has done that she has had generalized seizure activity and she does not recall the episode. Seizures generally last 2 to 3 minutes. She does not experience chest pain or palpitations prior to the event or afterwards. She has follows with cardiology locally [facility] Medical History Essential hypertension Wears dentures Wears glasses Post-menopausal Cancer Arthritis History of renal disease High cholesterol Injury of back Syncope Seizures Heartburn Gastric reflux Smoker Asthma Leg cramps History of pain when walking History of edema History of echocardiogram History of stress test Cardiology follow-up encounter Health care maintenance GERD (gastroesophageal reflux disease) Preventative health care Colon cancer screening Paroxysmal supraventricular tachycardia Atherosclerosis of coronary artery without angina pectoris History of non-ST elevation myocardial infarction (NSTEMI) (01/15/21) Blindness of left eye History of uterine cancer Panic attacks Anxiety Depression COPD (chronic obstructive pulmonary disease) Epilepsy Home Medications ?Medication ?Instructions ?Recorded ?Last Taken ?Type NK 01/20/25 Unknown History Allergy/AdvReac Type Severity Reaction Status Date / Time latex Allergy Mild rash Verified 08/20/23 12:55 acetaminophen (From Allergy Hives Verified 08/20/23 12:55 Tylenol-Codeine #3) codeine Allergy Hives Verified 08/20/23 12:55 tramadol Allergy Hives Verified 08/20/23 12:55 Family History Aunt Epilepsy Uncle Epilepsy Father Hypertension Myocardial infarction, Onset Age: 47 Grandmother Myocardial infarction, Onset Age: 50 Mother Colon cancer Other Anxiety Asthma Depression Kidney disease Surgical History History of nephrectomy, left H/O foot surgery History of left heart catheterization (01/17/21) H/O left nephrectomy (2004) History of eye surgery History of cholecystectomy History of hysterectomy Social History Smoking Status: Current every day smoker tobacco type: cigarettes Tobacco: How many years used: 40 second hand exposure: No quit status: considering quitting alcohol intake: current alcohol intake frequency: holidays/special occasions only Alcohol type: wine substance use type: former substance user and marijuana caffeine: Yes Type: coffee Number of servings: 2 what type of physical activity do you participate in: walking frequency: daily ROS ROS ED Constitutional Constitutional ED: Denies chills, fever(s) or weight loss Eyes Eyes: Denies change in vision or diplopia ENT ENT ED: Denies ear pain, rhinorrhea or sore throat Cardiovascular Cardiovascular: Denies chest pain, orthopnea, palpitations or racing heartbeat Respiratory/Chest Respiratory/Chest: Denies cough, dyspnea or orthopnea Gastrointestinal Gastrointestinal: Denies abdominal pain, diarrhea, nausea or vomiting Genitourinary Genitourinary ED: Denies dysuria, hematuria or urinary frequency Musculoskeletal Musculoskeletal: Denies arthralgias or myalgias Integumentary Denies abscess or rash Neurologic Neurologic: Reports headache(s) and other Details: Seizures ; Denies paresthesias or weakness Psychiatric Psychiatric: Denies anxiety, depression, suicidal ideation or suicidal thoughts Endocrine Endocrinology: Denies polydipsia, polyphagia or polyuria Allergic/Immunologic Allergic/Immunologic ED: Denies mouth swelling, tongue swelling or urticaria EXAM Physical Exam Const Vital Signs: 01/20/25 10:29 01/20/25 11:17 01/20/25 11:20 Temperature 97.5 F L Temperature Source Oral Pulse Rate 87 78 Respiratory Rate 16 21 H Respiratory Effort Normal Non-Labored Respiratory Pattern Normal Blood Pressure 101/71 105/74 Blood Pressure Mean 81 84 Pulse Ox 96 99 Oxygen Delivery Method Room Air Room Air Positive well nourished and well developed General Appearance ED: well developed HEENT Reports normocephalic and moist mucous membranes HEENT Narrative: Resolving hematoma on the right scalp Eyes PERRL and EOMs intact bilaterally Neck no lymphadenopathy, supple and no JVD Resp normal respiratory effort and clear to auscultation bilaterally Cardio regular rate, regular rhythm and no murmurs GI normal to inspection, nondistended, normoactive bowel sounds and non-tender Palpation: soft Back/Spine no CVA tenderness and normal ROM Extremity normal to inspection General Extremety ED: Negative for edema General Extremity: Negative for edema Neuro oriented x3, CN's II-XII intact bilaterally and no sensory deficits noted Neuro Narrative: NIH 0 Sensorium / Orientation: alert Motor Exam: strength 5/5 throughout; Negative for general weakness or strength abnormal Psych mental status grossly normal Mood & Affect: Negative for depressed or tearful Skin no rashes or lesions noted and no wounds MDM MDM MDM Narrative Medical decision making narrative: Differential diagnosis includes but not limited to seizure disorder intracranial hemorrhage cardiac dysrhythmia liver dysfunction infection appetite abnormalities Basic blood work essentially normal glucose 110. Urinalysis with no overt infection slightly contaminated. CT of the brain was obtained read by radiology reviewed by myself. Please see radiologist read for full details but no obvious intracranial hemorrhage hematoma or fractures noted. Patient's EKG is a normal sinus rhythm. She has had no events on the monitor. This could be seizure disorder as she has untreated her describes seizure activity. It is possible that the patient is having cardiogenic syncope but not seeing evidence of that this time. She is due to see cardiology and plans on making appointment. She is amendable to trialing a seizure medication but is hesitant to take most seizure medicines. She has never been on Keppra I think that is a reasonable place to start. I would recommend seeing neurology as well. History & Record Review Discussion w/independent historian: Patient and Significant other Additional record(s) reviewed:: Prior outpatient record, Prior ED visit and Prior labs Lab Data Attestation: I reviewed the patient's lab results. Labs: Laboratory Results - last 24 hr 01/20/25 01/20/25 11:00 11:30 WBC 5.7 RBC 3.96 L Hgb 12.8 Hct 38.5 MCV 97.2 MCH 32.3 H MCHC 33.2 RDW Std Deviation 46.5 H RDW Coeff of [place]azar 12.9 Plt Count 295 MPV 9.4 Immature Gran % (Auto) 0.400 Neut % (Auto) 50.0 Lymph % (Auto) 36.3 [place] % (Auto) 10.5 H Eos % (Auto) 2.1 Baso % (Auto) 0.7 Absolute Neuts (auto) 2.9 Absolute Lymphs (auto) 2.07 Nucleated RBC % 0 Sodium 138 Potassium 3.8 Chloride 105 Carbon Dioxide 23.2 Anion Gap 10 BUN 18 Creatinine 0.89 Estim Creat Clear Calc 53.62 Est GFR (MDRD) Non-Af 74 BUN/Creatinine Ratio 20.4 H Glucose 110 H Calcium 8.9 Total Bilirubin 0.35 Direct Bilirubin 0.17 AST 15 ALT 10 Alkaline Phosphatase 101 Total Protein 6.2 Albumin 3.9 Globulin 2.3 Urine Color Yellow Urine Clarity Sl. Cloudy Urine pH 6.0 Ur Specific [place] 1.025 Urine Protein 30 H Urine Glucose (UA) Normal Urine Ketones Negative Urine Occult Blood Negative Urine Nitrite Negative Urine Bilirubin Negative Urine Urobilinogen 1 H Ur Leukocyte Esterase Negative Urine RBC 0 SEEN Urine WBC 0 SEEN Ur Squamous Epith Cells 5-10 SEEN Urine Bacteria 1+ Urine Mucus 0 SEEN Radiography Diagnostic Testing: Clinical Impression(s) from Imaging Studies Brain CT 01/20/25 10:46 IMPRESSION: There is a 0.8 cm mucous retention cyst in the left maxillary sinus. The anterior horns of the lateral ventricles are small and appear parallel with dilation of the occipital horns, measuring 2.9 cm on the right, 2.9 cm in the left. 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 No acute intracranial abnormality is identified. There is no visible acute traumatic injury. Reading Location: [facility] EKG Initial EKG: Attestation: I personally reviewed and interpreted this EKG as follows: Comments: Normal sinus rhythm ventricular rate of 78 beats per Discharge Plan Triage Chief Complaint: Syncope ED Provider: Skyler Grant Dx/Rx/DC Orders Prescriptions: No Action NK Primary Care Provider: Landen Garcia Referrals: Landen Garcia MD [Primary Care Provider] - Print Language: Setswana
[2025-01-20 11:11] LABS: Absolute Lymphocyte Count 2.07 X10^3/uL (0.83-4.51); Absolute Neutrophil Count 2.9 X10^3/uL (2.0-7.7); Basophil# 0.04 X10^3/uL; Basophil% 0.7 % (0-1); Eosinophil# 0.12 X10^3/uL; Eosinophils% 2.1 % (0-5); Hematocrit 38.5 % (37-47); Hemoglobin 12.8 g/dL (12.0-15.0); Lymphocyte # 2.07 X10^3/ul (0.83-4.51); Lymphocyte % 36.3 % (19-41); Mean Corp Hgb Conc 33.2 g/dL (32-36); Mean Corpuscular Hgb 32.3 pg (27.0-32.0); Mean Corpuscular Volume 97.2 fL (81-99); Mean Platelet Vol. 9.4 fl (6.2-12.0); Monocyte% 10.5 % (0-10); NRBC Flagged by Analyzer 0 % (0-5); Neutrophil # 2.85 X10^3/uL (2.7-7.7); Platelet Count 295 K/mm3 (150-450); RBC Distribution Width CV 12.9 % (11.6-14.6); RBC Distribution Width SD 46.5 fl (35.1-43.9); Red Blood Count 3.96 M/mm3 (4.2-5.4); White Blood Count 5.7 K/mm3 (4.4-11.0)
[2025-01-20 11:20] VITALS: BP 105/74; PULSE 78; RESP 21; O2SAT 99
[2025-01-20 11:31] LABS: AST(SGOT) 15 U/L (<=31); Alanine Aminotransfer ALT/SGPT 10 U/L (<=34); Albumin, Serum 3.9 g/dL (3.4-4.8); Alkaline Phosphatase 101 U/L (35-104); Anion Gap 10 (5-15); BUN 18 mg/dL (4-19); BUN/Creat Ratio 20.4 RATIO (10-20); Bilirubin, Direct 0.17 mg/dL (0.00-0.30); Calcium,Total 8.9 mg/dL (7.6-11.0); Carbon Dioxide 23.2 mmol/L (21.0-32.0); Chloride 105 mmol/L (98-108); Creatinine, Serum 0.89 mg/dL (0.70-1.20); EST Glomerular Filtration Rate 74 (>60); Estimated Creatinine Clearance 53.62 ml/min (50-250); Globulin 2.3 g/dL (2.2-4.2); Glucose 110 mg/dL (70-99); Potassium 3.8 mmol/L (3.3-5.1); Protein, Total 6.2 g/dL (5.9-8.4); Sodium Level 138 mmol/L (133-145); Total Bilirubin 0.35 mg/dL (0.00-1.30)
[2025-01-20 11:33] LABS: Mucous, Urine 0 SEEN /hpf (<or=2+); Red Blood Cells-Urine 0 SEEN /hpf (0-5); White Blood Cells 0 SEEN /hpf (0-5)
[2025-01-20 11:35] LABS: Color, Urine Yellow (Yellow); Glucose, Dipstick Normal (Normal); Ketone-Dipstick Negative (Negative); Leukocyte Esterase-Dipstick Negative /ul (Negative); Nitrite-Dipstick Negative (Negative); Occult Blood-Urine Negative /ul (Negative); Protein-Dipstick 30 mg/dl (Negative); Specific Gravity, Urine 1.025 (1.002-1.030); Urine Bilirubin Dipstick Negative (Negative); Urine Clarity Sl. Cloudy (Clear); Urine Urobilinogen 1 mg/dl (Normal)
[2025-01-20 11:41] LABS: Bacteria 1+ /hpf (None Seen); Squamous Epithelial Cells - UA 5-10 SEEN /hpf (5-10)
[2025-01-20 12:01] VITALS: BP 113/68; PULSE 78; RESP 19; TEMP 36.4; O2SAT 100
[2025-01-20 12:01] LABS: Troponin T High Sensitivity 7 ng/L (<=14)
== END 2025-01-20 12:02 | disposition home or self-care (01) ==
PROVIDERS: Emergency Provider Emergency Medicine; PCP Internal Medicine; Visit Provider Emergency Medicine
DX: R55 Syncope and collapse (principal); G40.909 Epilepsy, unspecified, not intractable, without status epilepticus
CPT/HCPCS: 70450; 80048; 80076; 81001; 84484; 85025; 93005; 99283